=== PATIENT | female | born 1935 | race Caucasian/White ===

== ENCOUNTER 2019-02-24 22:55 | Inpatient (IN) | payer MEDICARE, OTHER ==
[~2019-02-24] VITALS: Ht 152.4 cm; Wt 49.8 kg
[~2019-02-24 22:55] MED LIST: ACETAMINOPHEN325 M1; AMLODIPINE BESY10 MG PO; ANTI-DIARRHEA2 MG; ASPIRIN EC81 MG PO; BABY ASPIRIN81 MG; BENZONATATE100 MG PO; CATAPRES0.1 MG PO; CICLOPIROX15 GM TOP; DICLOFENAC SOD150 ML OS; EXTRA STRENGTH500 MG PO; IBUPROFEN200 MG; IPRAT-ALBUT 0.5-3 ML; LAC HYDRIN; LEVAQUIN500 MG PO; LIDODERM700 MG; LISINOPRIL30 MG; MAGNESIUM250 M1 PO; MAGOX 400400 MG PO; MILK OF MA400 MG/5 M; OXYCODONE HCL5 MG PO; PAXIL40 MG PO; POTASSIUM CHLO20 ME1 PO; PREDNISONE20 MG PO; PROMETHAZINE HC25 M1; PROVENTIL HFA6.7 GM INH; RULOX SUSPENSI355 ML; SENNA-TIME S T1 EACH PO; TRAMADOL HCL50 MG PO; ZITHROMAX250 MG PO; ZOCOR10 MG PO
--- OUTSIDE RECORDS SUMMARY | 2019-02-24 22:58 | XMS ---
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 Sonam VISIT COUNT (12 MO.) 1 OSWALD Pleitez TOTAL 1 NOTE: Visits indicate total known visits. ED/UCC VISIT TRACKING (12 MO.) 02/24/2019 22:56 [facility]an [place] TYPE: Emergency COMPLAINT: - FALL INPATIENT VISIT TRACKING (12 MO.) No inpatient visits to display in this time frame [id number]
--- NOTE | 2019-02-25 03:15 | NUR ---
PT ARRIVED TO THE FLOOR AND TRANSFERED BY DRAW SHEET TO BED. PAIN 5/10 IN LEFT HIP, PRN PAIN MED PROVIDED. PT REPOSITIONED AND WARM PACK AND BLANKET APPLIED. IV FLUIDS INFUSING PER ORDER, IV CDI, WNL, FLUSHED WELL. ASSESSMENT COMPLETED, CMS INTACT, PT A&O X4. VS TAKEN. CPOX ON, SPO2 86%, RT NOTIFIED, PT PLACED ON 1L NC WITH SPO2 RISING TO 93%. NO OTHER NEEDS AT THIS TIME. CALL LIGHT IN REACH.
--- NOTE | 2019-02-25 05:08 | NUR ---
PT RESTING IN BED, EYES CLOSED. RR 18, EVEN, UNLABORED. SPO2 93% ON 1L NC. CALL LIGHT IN REACH.
--- NOTE | 2019-02-25 05:16 | NUR ---
PT HAS SLEPT MOST THE SHIFT. PAIN MANAGED WITH PRN PAIN MED, WARM PACK AND POSITIONING. PT TOLERATED IV FLUIDS AND NPO WELL. CMS INTACT IN LLE.
--- NOTE | 2019-02-25 05:49 | NUR ---
PT AWAKE IN ROOM. PAIN 5/10 IN LEFT HIP. PRN PAIN MED PROVIDED. TITRATED PT OFF NC O2, SPO2 DROPPED TO 86. PT PLACED BACK ON 1L NC. CMS INTACT IN LLE. NO OTHER NEEDS. CALL LIGHT IN REACH.
--- NOTE | 2019-02-25 06:22 | NUR ---
PATIENT ARRIVED LATE THIS EVENING. . PATIENT RESTED ALL NIGHT. PATIENT IS NPO. CALL LIGHT IN REACH
--- NOTE | 2019-02-25 06:37 | NUR ---
VS AND I & O COMPLETED. IV INFUSING PER ORDER. NO OTHER NEEDS. CALL LIGHT IN REACH.
--- NOTE | 2019-02-25 07:00 | NUR ---
BEDSIDE HANDOFF REPORT RECEIVED FROM CONTENT ASSISTANT RN. P TSLEDEBI, LEFT UNDISTURBED.
--- NOTE | 2019-02-25 07:53 | NUR ---
PATIENT RESTING IN BED, EYES CLOSED. PATIENT REQUESTING TO SLEEP LONGER. AM CARE SET UP AT BEDSIDE FOR PATIENT TO USE AT A LATER TIME. CALL LIGHT IN REACH. NO OTHER NEEDS AT THIS TIME.
--- NOTE | 2019-02-25 08:01 | NUR ---
PT RESTIGN IN BED. PT STATES PAIN IS OK AT THIS TIME. LUNG SOUNDS CLEAR, O2 SATS 95% ON 1L NC, DENIES SOB. BOWEL TONES ACTIVE, DENIES NAUSEA, PROVIDED MOUTH SWABS FOR COMFORT. CMS INTACT, LEFT LEG TENDER TO MOVE, ELEVATED ON PILLOW FOR COMFORT. IV FLUIDS INFUSING D5LR +20MEQ K AT 125 ML/HR. ABDI CATH DRAINING CLEAR YELLOW URINE. DISCUSSED PLAN OF CARE FOR THE DAY, AWAITING MD TO SEE PT. PT DENIES OTHER NEEDS AT THIS TIME.
--- NOTE | 2019-02-25 09:30 | NUR ---
PATIENT COMPLAINS OF PAIN AT AN 8 OUT OF 10 AND MOANS AND GROANS OFTEN. RN AT BEDSIDE AT THIS TIME.
--- NOTE | 2019-02-25 09:36 | EKG ---
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
--- NOTE | 2019-02-25 10:05 | NUR ---
PATIENT SITTING UP IN BED, SLIGHTLY TO TAKE MORNING MEDICATIONS WITH SEVERAL SIPS OF WATER. FAMILY IN ROOM WITH PATIENT.
--- NOTE | 2019-02-25 11:31 | NUR ---
ALEXUS GAVE PATIENT A SURGICAL WIPE DOWN THIS MORNING. CHANGED HER GOWN.
--- NOTE | 2019-02-25 11:53 | NUR ---
PT TO OR WITH OR NURSE.
--- NOTE | 2019-02-25 14:20 | NUR ---
PT RECEIVED FROM PACU. PT ON 3L NC, O2 SATS 95-97%, LUNG SOUNDS CLEAR. PT DROWSY BUT AROUSABLE TO VOICE, COMPLAINT OF PAIN BUT UNABLE TO RATE. LEFT HIP WITH GAUZE AND OPSITE DRESSING CDI, ICE PACK IN PLACE. ABDI CATH DRAINING YELLOW URINE. BOWEL TONES ACTIVE, PT DENIES NAUSEA, PROVIDED WATER AND A FEW BITES OF JELLO. TRANEXAMIC ACID AND LR AT 125 ML/HR INFUSING. DAUGHTER AT BEDSIDE.
--- NOTE | 2019-02-25 14:40 | NUR ---
02/25/19 1440 Evita Patel 1310- PT ARRIVES TO PACU LAYING ON HER RIGHT SIDE WITH HER LEGS DRAWN UP TOWARDS HER CHEST. THIS IS HOW THE PT HAD POSITIONED HERSELF PRIOR TO SURGERY DUE TO BACK PAIN AND COMFORT IN THIS POSITION. PT IS REACTIVE. RESP EVEN BUT LABORED. PT GIVEN A BREATHING TREATMENT PER ANESTHESIA REQUEST. PT EDUCATED SHE IS IN THE RECOVERY ROOM. PT IS SHAKING AND IS DIFFICULT TO OBTAIN VITAL SIGNS. PT GIVEN WARM BLANKETS AND THE ROBYN HUGGER WARMING UP. 1315- HELD PT'S HAND TO TRY TO KEEP RIGHT ARM STILL TO OBTAIN A BLOOD PRESSURE. BLOOD PRESSURE REMAINS ELEVATED. PATRICK RACHEL, FLORAL ARRANGER AT THE BEDSIDE AND IS GETTING MEDICATIONS TO LOWER PT'S BLOOD PRESSURE. 1317- MEDICATIONS GIVEN. SEE ANESTHESIA BLUE SHEET. 1322- PT PLACED ON 3L VIA NC. PT'S RESP ARE EVEN AND UNLABORED AFTER THE BREATHING TREATMENT.
[2019-02-25] MEDS ORDERED: MEN'S MULTIVIT1 EACH PO (14:54)
[2019-02-25] MEDS ORDERED: LISINOPRIL10 MG PO (14:56)
[2019-02-25] MEDS ORDERED: KLOR-CON 1010 MEQ PO (15:00)
--- NOTE | 2019-02-25 15:20 | NUR ---
VSS. PT CONTINUES TO BE A LITTLE DROWSY, AROUSABLE TO VOICE. PT RATING PAIN MILD AT THIS TIME. DRESSING TO LEFT HIP CDI, NO DRAINAGE, ICE PACK IN PLACE.
--- NOTE | 2019-02-25 17:15 | NUR ---
VSS. LEFT HIP INCISION WITH DRESSING CDI. PT WEANED TO 1L NC, CONTINUOUS PULSE OX IN PLACE. IV ANCEF GIVEN PER ORDER. PT CONTINUES TO RATE PAIN MILD AT THIS TIME. PT REFUSED NICOTINE PATCH. PT DENIES OTHER NEEDS AT THIS TIME.
--- NOTE | 2019-02-25 18:40 | NUR ---
PT WENT FOR LEFT HIP PINNING TODAY, DOING WELL POST-OP. PT WEANED TO 1L NC, LUNG SOUNDS CLEAR, CONTINUOUS PULSE OX IN PLACE. MINIMAL PAIN AFTER SURGERY, ICE PACKS IN PLACE. PT ADVANCED TO REGULAR DIET, TOLERATING WELL. ABDI CATH IN PLACE, QS. LR INFUSING AT 125 ML/HR, IV ANCEF.
--- NOTE | 2019-02-25 19:54 | NUR ---
SECRET SERVICE AGENT ROUNDING NOTE. PT RESTING IN BED WITH EYES CLOSED. PT DOES NOT WAKE WHEN AND TAXI INSTRUCTOR BUS TROLLEY ENTERS THE ROOM. CALL LIGHT IN REACH. WHITE BOARD UPDATED.
--- NOTE | 2019-02-25 20:35 | NUR ---
Awake, O2 1L NC, CPOX readings 94% , denies sob with exertion. dry, non productive cough present. Has dentures, declines to have them cleaned or soaked. IS at bedside, Coop with assessment. c/o 7/10 L hip pain, medicated with scheduled Tylenol 650mg po. L hip gauze dressing covered with Opsite in place, feet pumps in place, moves legs, good cms. Repositioned up in bed, turned, helpeful. f/c intact patent. draining clear yellow urine. laina care/f/c care done. has dentures, tolerating regular diet well, fresh water given, call light at bedside.
--- NOTE | 2019-02-26 01:09 | NUR ---
RESTING, NO DISTRESS O2 1L NC, CPOX IN PLACE, IVF INFUSING W/O PROBLEMS. SCDS IN PLACE, DRESSING L HIP INTACT
--- NOTE | 2019-02-26 03:26 | NUR ---
PT RESTING IN BED WITH EYES CLOSED. RESPIRATIONS EVEN AND UNLABORED. PT APPEARS TO BE SLEEPING. CALL LIGHT IN REACH.
--- NOTE | 2019-02-26 05:18 | NUR ---
CALCULATION REVIEWER IN ROOM TAKING VITALS. PT REPORTS PAIN 6/10 TO L HIP. PRN OXYCODONE ADMINISTERED. WARM BLANKET PROVIDED. ICE PACK REFILLED AND PLACED ON L HIP. PT DENIES FURTHER NEEDS AT THIS TIME. CALL LIGHT IN REACH.
--- NOTE | 2019-02-26 06:08 | NUR ---
PT REPORTS THAT OXYCODONE WAS INEFFECTIVE BRINGING PAIN DOWN. SHE STATES SHE DID NOT LIKE THE WAY IT MADE HER FEEL, DESCRIBES "WOOZY". PT DENIES NAUSEA, STATES I NEVER FELT SICK. PT PROVIDED WITH APPLE SAUCE, CRACKERS. WATER AT BEDSIDE. PT REPOSITIONED WITH PILLOWS. PT PLACED HER BREAKFAST ORDER. PT DENIES FURTHER NEEDS AT THIS TIME. CALL LIGHT WITHIN REACH.
--- NOTE | 2019-02-26 06:24 | NUR ---
PT REQUESTS TO ASK THIS WRTIER A QUESTION, ORAL HEALTH THERAPIST TO ROOM. PT ASKS WHAT HER ACTIVITY RESTRICTIONS ARE. EDUCATION PROVIDED. PT STATES THAT PAIN IS IMPROVED, UNABLE TO RATE AT THIS TIME. SA02 96% ON 1 LPM, O2 TURNED OFF SA02 92%. PT TOLERATING WELL. PT DENIES FURTHER NEEDS AT THIS TIME. CALL LIGHT WITHIN REACH.
--- NOTE | 2019-02-26 07:00 | NUR ---
PT RESTING SUPINE IN BED EYES CLOSED AND RESPIRATIONS EVEN AND UNLABORED. CALL LIGHT AND H2O IN REACH. REPORT RECEIVED FROM BRITTA LLANOS.
--- NOTE | 2019-02-26 08:07 | NUR ---
PT SITTING UP IN BED ALERT AND ORIENTED. PT ASSESSMENT COMPLETED. CALL LIGHT AND H2O IN REACH. AM MEDS ADMINISTERED EXCEPT FOR HOME ANTIFUNGAL CREAM THAT IS UNAVAILABLE HERE IN HOSPITAL PER PHARMACIST. PT ALSO REQUESTS IBUPROFEN PRN TO BE ORDERED SHE SAYS SHE NORMALLY TAKES THIS AT HOME FOR PAIN IT IT HELPS MORE THAN TYLENOL. WILL NOTIFY MD OF FUNGAL CREAM BEING UNAVAILABLE AND OF PT REQUEST FOR INUPROFEN TO BE ORDERED.
--- NOTE | 2019-02-26 08:18 | NUR ---
PATIENT SITTING UP IN BED EATING HER BREAKFAST.
--- NOTE | 2019-02-26 11:04 | NUR ---
CALL PLACED TO DR FIGUEREDO CELL PHONE. NOTIFIED OF PT'S REQUEST FOR PRN IBUPROFEN AND OF FACT THAT ANTIFUNGAL CREAM PT HAS ORDERED IS UNAVAILABLE HERE AT HOSPITAL. NEW ORDER RECEIVED FOR IBUPROFEN PO 600MG Q8HRS PRN PAIN. PER MD WILL HOLD ANTIFUNGAL CREAM WHILE PT HERE AT HOSPITAL. NO FURTHER ORDERS RECEIVED AT THIS TIME.
--- NOTE | 2019-02-26 11:54 | NUR ---
PT RESTING SUPINE IN BED ALERT AND ORIENTED WATCHING TV. 10CC'S OF STERILE WATER REMOVED FROM BALLOON AND ABDI REMOVED WITHOUT DIFFICULTY. PT TOLERATED WELL AND AGREES TO USE CALL LIGHT WHEN SHE DEVELOPES URGE TO VOID AND NEEDED FOR SAFETY. CALL LIGHT AND H2O IN REACH. NO FURTHER NEEDS OR CONCERNS VOICED.
--- NOTE | 2019-02-26 12:35 | NUR ---
PT SITTING UP IN HIGH FOLWERS POSITION IN BED EATING LUNCH AND DENIES NEEDS OR CONCERNS. CALL LIGHT AND H2O IN REACH. NO NEEDS OR CONCERNS VOICED. PT AGREES TO USE CALL LIGHT AFTER SHE IS FINISHED EATING LUNCH SO SHE CAN AMBULATE IN HALLS WITH ASSIST.
--- NOTE | 2019-02-26 15:35 | NUR ---
PT RESTING IN SEMIFOWELRS POSITION IN BED ALERT AND ORIENTED. CALL LIGHT AND H2O IN REACH. PT ASSESSMENT COMPLETED. NO NEEDS OR CONCERNS VOICED.
--- NOTE | 2019-02-26 20:45 | NUR ---
PT ASSESSMENT COMPLETE PT RATES PAIN 6/10 TO BACK AND L HIP. SCHEDULED TYLENOL ADMINISTERED. PT DENIES NAUSEA OR SOB. LUNG SOUNDS DIM IN BILATERAL BASES. CMS INTACT TO ALL EXTREMTIES. DRESSING TO L HIP, GAUZE AND OPSITE C/D/I. PT UP TO BSC WITH 1 PA, TOLERATED WELL. IV FLUSHED, FOUND TO BE INFILTRATED. ATTEMPTED TO RESTART IV UNSUCCESSFULLY. PT WONDERS IF MD CAN BE CONTACTED TO LEAVE IV OUT. MD NOTIFIED, VERBAL ORDER RECEIVED OK TO LEAVE IV OUT AND CHANGE PRNS TO PO. PT DENIES FURTHER NEEDS. CALL LIGHT WITHIN REACH.
--- NOTE | 2019-02-26 21:50 | NUR ---
ASSISTED PATIENT BACK TO BED FROM BEDSIDE COMMODE. SCDS BACK ON. BED ALARM ON. CALL LIGHT IN REACH.
--- NOTE | 2019-02-27 00:20 | NUR ---
PT RESTING IN BED WITH EYES CLOSED. DOES NOT WAKE WHILE BATH MIXER IN DOORWAY. CALL LIGHT IN REACH.
--- NOTE | 2019-02-27 01:17 | NUR ---
1 PA TO BEDSIDE COMMODE USING WALKER. PATIENT VOIDED 500ML AND LARGE FORMED BOWEL MOVEMENT. PATIENT IS BACK IN BED. SCD BACK ON. CALL LIGHT IN HER HAND. NO OTHER NEEDS AT THIS TIME.
--- NOTE | 2019-02-27 02:15 | NUR ---
PT ASSESSMENT COMPLETE. PT RATES PAIN 6/10 TO L HIP. SCHEDULED TYLENOL ADMINISTERED. PT UP TO COMMODE AND BACK TO BED WITH FWW AND 1 PA. TOLERATED WELL. WARM BLANKETS PROVIDED. PT DENIES FURTHER NEEDS AT THIS TIME. CALL LIGHT IN REACH.
--- NOTE | 2019-02-27 02:47 | NUR ---
PT RESTING IN BED WITH EYES CLOSED. RESPIRATIONS EVEN AND UNLABORED. PT DOES NOT WAKE WHILE INSTRUMENT ENGINEER IN DOORWAY, APPEARS TO BE SLEEPING. CALL LIGHT IN REACH.
--- NOTE | 2019-02-27 05:11 | NUR ---
PT SLEPT OFF AND ON THIS SHIFT. SCHEDULED TYLENOL CONTROLLED PAIN WELL. NO NAUSEA OR SOB. GAUZE AND OPSITE TO L HIP, C/D/I. CPOX, TOLERATING RA. WBAT, 1 PA WITH FWW. GOOD UO. BM THIS SHIFT. NO IV ACCESS. FROM [facility].
--- NOTE | 2019-02-27 08:13 | NUR ---
BEDSIDE REPORT RECEIVED PT RESTING IN BED REFUSES UP TO THE CHAIR.
--- NOTE | 2019-02-27 11:14 | HP ---
[facility] [address] [place], [place] [address] Signed ADMISSION DATE: 02/25/2019 HISTORY OF PRESENT ILLNESS: The patient is an 83-year-old white female, who previously had an intertrochanteric fracture on the right hip. She lives in a long-term care facility ([facility]) and was ambulating by herself with her walker yesterday when she had a ground-level fall. She had immediate pain in her left hip area and was unable to ambulate. She was brought to the emergency room where evaluation and x-rays suggested that she had a valgus impacted subcapital fracture of the left hip. She was admitted to the Orthopedic Service. At the present time, really her only complaint is a left hip pain. She says she has some discomfort in her neck, but nothing that she has not had previously. She specifically denies a loss of consciousness, blunt force head trauma, said she did not feel dizzy before she fell. She simply lost her footing. PAST MEDICAL HISTORY: She has a long history of hypertension. Apparently gets fairly good control with lisinopril and amlodipine. She also has a history of osteoarthritis, hyperlipidemia, hypokalemia, hypocalcemia, osteoporosis, and depression. CURRENT MEDICATIONS: Sennoside/docusate sodium, Levaquin, magnesium oxide, potassium chloride, amlodipine 10 mg, Paxil 40 mg daily, clonidine 0.1 mg twice a day, simvastatin 10 mg at bedtime. She uses ciclopirox cream between her toes. She takes tramadol and Tylenol for chronic pain issues and takes a baby aspirin. ALLERGIES: She has no known drug allergies. PHYSICAL EXAMINATION: GENERAL: She is a pleasant but diminutive 83-year-old white female. Although, she is supine in bed, she indicates she weighs about 130 pounds. She is 5 feet tall. HEENT: On examination, there is no evidence of craniofacial trauma. NECK: Moderately stiff, but in a diffuse multi-planer way consistent with degenerative disk disease, not with any acute injury. CHEST: Clear. CARDIAC: Reveals a regular rhythm. ABDOMEN: Benign. EXTREMITIES: The right leg is not shortened or externally rotated, but there is a contusion over the greater trochanter laterally. Having already seen the x-rays, we did Electronically Signed By: SAMIR MCLAUGHLIN MD 02/27/19 1114 PATIENT NAME: DEJAH GERARD HISTORY AND PHYSICAL DATE OF : 37 REPORT #: [id number] PHYSICIAN: SAMIR MCLAUGHLIN MD PCP: SIMONA RHODES MD REPORT IS CONFIDENTIAL AND NOT TO BE RELEASED WITHOUT AUTHORIZATION [facility] [address], [place] [address] Signed not really make any attempt to move her left leg because of a left hip fracture. The left knee is not swollen or tender. NEUROVASCULAR: Distally appears unremarkable. She is able to plantar flex and dorsiflex her toes and feet. Pulses are diminished but bilaterally symmetrically so. DIAGNOSTIC DATA: Her x-rays and x-ray reports were reviewed. All other laboratory studies seem pretty unremarkable except for a mild hypokalemia of 3.4. Her hemoglobin is 12. Her EKG actually shows improvement from when it was previously taken in 2017. There does not appear to be any acute issues on her chest x-ray. ASSESSMENT AND PLAN: I discussed with the patient and her daughter who has her power of insurance defense attorney and our general recommendation is percutaneous cannulated screw fixation. We reviewed the numerous potential risks and complications associated with hip fractures in the elderly along with the general statistics concerning survivability and a long-term functionality. After outlining all potential risks and complications, the patient and her daughter were comfortable proceeding with internal fixation of the hip fracture as described above. Samir Mclaughlin MD WFB/MODL /[id number] Copies: ~ Electronically Signed By: SAMIR MCLAUGHLIN MD 02/27/19 1114 PATIENT NAME: DEJAH GERARD HISTORY AND PHYSICAL DATE OF : 37 REPORT #: [id number] PHYSICIAN: SAMIR MCLAUGHLIN MD PCP: SIMONA RHODES MD REPORT IS CONFIDENTIAL AND NOT TO BE RELEASED WITHOUT AUTHORIZATION
--- NOTE | 2019-02-27 11:14 | OR ---
[facility] [address] [place], [place] [address] Signed DATE OF OPERATION: 02/25/2019 SURGEON: Jarrod Huggins MD PREOPERATIVE DIAGNOSIS: Impacted subcapital fracture, left hip. POSTOPERATIVE DIAGNOSIS: Impacted subcapital fracture, left hip. PROCEDURE PERFORMED: Percutaneous cannulated screw fixation subcapital fracture, left hip. ANESTHESIA: General. SPECIMENS AND COMPLICATIONS: There were no specimens or complications. BLOOD LOSS: Trivial. WHAT WAS DONE: The patient was taken to the operating room. After anesthesia was induced and airway secured, the patient was positioned, prepped and draped in the routine sterile fashion on the fracture table. Fracture was reduced with gentle longitudinal traction and relatively neutral rotation. After checking the position fluoroscopically, the lateral aspect of the leg was prepped and draped in the routine sterile fashion. After an appropriate preoperative time-out, a small incision was made over the base of the greater trochanter. Under biplanar fluoroscopic control, three terminally threaded 8-inch guide pins were introduced through the lateral cortex up the neck and into the head. These were then overdrilled with three 7.3 mm cannulated titanium screws to with a washer. This appeared to give us excellent fixation. The guide pins were withdrawn. The final position was checked fluoroscopically and pictures were printed. The wound was irrigated, closed in standard fashion, sterile dressing applied. The patient was awakened, taken to recovery room where she arrived in stable condition. Counts were correct and antibiotic protocols were followed. Electronically Signed By: JARROD HUGGINS MD 02/27/19 1114 PATIENT NAME: DEJAH GERARD OPERATIVE REPORT DATE OF : 37 REPORT #: [id number] PHYSICIAN: JARROD HUGGINS MD PCP: SIMONA RHODES MD REPORT IS CONFIDENTIAL AND NOT TO BE RELEASED WITHOUT AUTHORIZATION [address] [place] [address] Signed Jarrod Huggins MD WFCha/MODL /[id number] Copies: ~ Electronically Signed By: JARROD HUGGINS MD 02/27/19 1114 PATIENT NAME: DEJAH GERARD OPERATIVE REPORT DATE OF : 37 REPORT #: [id number] PHYSICIAN: JARROD HUGGINS MD PCP: SIMONA RHODES MD REPORT IS CONFIDENTIAL AND NOT TO BE RELEASED WITHOUT AUTHORIZATION
--- NOTE | 2019-02-27 11:18 | NUR ---
PT DAUGHTER IN TO VISIT THIS SHIFT. PT UP TO CHAIR TO SIT FOR A TIME SHE IS ABLE TO MOVE HERSELF FROM THE BED SBA ONLY PT USES 4WW TO CHAIR. CALL LIGHT AND NEEDED ITEMS IN REACH NO C/O PAIN
--- NOTE | 2019-02-27 14:00 | NUR ---
PT RETURNS TO BED AFTER NOON MEAL TO NAP FOR A TIME, STATES SHE IS "SO TIRED" ANTICIPATES P/T AFTER 1500
--- NOTE | 2019-02-27 14:21 | NUR ---
PT IN BED, PLEASANT, AND STATED THAT SHE WOULD LIKE TO VISIT BUT FEELS A NEED TO REST. WILL CHECK BACK
--- NOTE | 2019-02-27 15:36 | NUR ---
SPOKE WITH ROBERTO FROM [facility] WHERE PATIENT LIVES. SHE STATES [place] IS FAIRLY INDEPENDENT. SHE USES A 4WW AND A W/C WHICH SHE PROPELS SELF IN. SHE IS ABLE TO TOILET SELF. SHE STATES THAT PATIENT IS A DAILY DRINKER OF USUALLY BEER AND SHE FELL OUTSIDE IN A SMOKING AREA. SHE STATES SHE IS COMING UP TO SPEAK WITH THE PATIENT ABOUT THIS AND TO DISCUSS RULES AGAIN. SHE INTENDS FOR PATIENT TO RETURN TO FACILITY IF SHE IS BACK TO HER BASELINE. WE DISCUSSED THAT PATIENT WILL NEED SOME DETENTION/THERAPY FIRST. WILL CONTINUE TO FOLLOW.
--- NOTE | 2019-02-27 15:43 | NUR ---
PATIENT UP TO BATHROOM AND BACK TO BED, 1PA FWW. PATIENT NOW WORKING WITH PT.
--- NOTE | 2019-02-27 16:21 | NUR ---
PATIENT UP TO BATHROOM AND BACK TO BED, 1PA FWW. PATIENT COMBED HAIR AND WASHED HANDS AT SINK. PATIENT REFUSED SHOWER. CALL LIGHT IN REACH. NO FURTHER NEEDS AT THIS TIME.
--- NOTE | 2019-02-27 16:32 | NUR ---
PT UP AMBULATES RODRIGUEZ WITH P/T WELL TOLERATED
--- NOTE | 2019-02-27 18:13 | NUR ---
PT UP IN BED FOR EVENING MEAL VISITOR PRESENT 1 HR PLUS. PT IS ACTIVELY VISITING, UPBEAT, AND ENTHUSIASTIC. AGREES IBUPROFEN WAS EFFECTIVE FOR DISCOMFORT AFTER P/T
--- NOTE | 2019-02-27 20:19 | NUR ---
PT ASSESSMENT COMPLETE. PT RATES PAIN 5/10 TO BACK AND L HIP. SCHEDULED TYLENOL ADMINSTERED. PT DENIES SOB OR NAUSEA. PT STATES SHE HAS BEEN PASSING MULTIPLE FLATUS TODAY. DENIES ABD TENDERNESS. DRESSING TO L HIP C/D/I. CMS INTACT TO ALL EXTREMITIES. PT UP TO COMMODE WITH MARIELLA. DENIES FURTHER NEEDS FROM THIS STRUCTURAL ANALYSIS ENGINEER. WATER PURIFICATION CHEMIST REMAINS IN ROOM.
--- NOTE | 2019-02-27 23:26 | NUR ---
PT RESTING IN BED WITH EYES CLOSED. DOES NOT WAKE WHILE COSMETOLOGY TEACHER IN DOORWAY. CALL LIGHT IN REACH.
--- NOTE | 2019-02-28 02:08 | NUR ---
scheduled tylenol administered. pt states that pain is well controlled at this time. pt up to bsc and back to bed with 1 pa. pt tolerated well. new gown provided. ice water provided. pt denies further needs at this time. call light in reach.
--- NOTE | 2019-02-28 05:14 | NUR ---
PT RESTING IN BED WITH EYES CLOSED. RESPIRATIONS EVEN AND UNLABORED. PT APPEARS TO BE SLEEPING. CALL LIGHT IN REACH.
--- NOTE | 2019-02-28 07:15 | NUR ---
BEDSIDE HANDOFF REPORT RECEIVED FROM SENIOR RISK ANALYST RN. PT SLEEPING, LEFT UNDISTURBED.
--- NOTE | 2019-02-28 08:45 | NUR ---
PT SBA FROM BSC TO BED, VOIDED AND HAD SOFT BM. PT RATING PAIN 5/10 TO LEFT HIP, GIVEN SCHEDULED TYLENOL. PT ON ROOM AIR, LUNG SOUNDS CLEAR, DENIES SOB. BOWEL TONES ACTIVE, TOLERATING REGULAR DIET, GOOD APPETITE. CMS INTACT, WITHOUT EDEMA, SCDS IN PLACE. PT WITHOUT IV ACCESS. LEFT HIP WITH OPSITE AND GAUZE, CDI. PT DENIES OTHER NEEDS AT THIS TIME.
--- NOTE | 2019-02-28 09:30 | NUR ---
PATIENT SITTING UP IN BED WATCHING TV. HAIR COMBED. WARM WASHCLOTH GIVEN. MARIMAR CHRISTINEEK IN TO TALK TO PATIENT. PATIENT SAID MAYBE SHOWER AFTER LUNCH. CALL LIGHT IN REACH. NO FURTHER NEEDS AT THIS TIME.
--- NOTE | 2019-02-28 13:50 | NUR ---
PATIENT UP TO BATHROOM AND BACK TO BED, 1PA FWW. PREVENTATIVE MAINTENANCE TECHNICIAN IN ROOM TALKING WITH PATIENT. CALL LIGHT IN REACH. NO FURTHER NEEDS AT THIS TIME.
--- NOTE | 2019-02-28 14:15 | NUR ---
PT RESTINGIN BED. NO ACUTE CHANGES. PT STATES PAIN IS MUCH BETTER AFTER TYLENOL AND MOTRIN. PT DENIES OTHER NEEDS AT THIS TIME.
--- NOTE | 2019-02-28 15:32 | NUR ---
In to speak with pt. There was a discussion concerning TC for this pt. Anthony Alcocer came to see pt and she can return there. Pt would like to return with HH at [facility] and have HH. Chart will be sent to [facility] as daughter and pt chose [facility]. Called Dr. Huggins and he will discharge pt. tomorrow.
--- NOTE | 2019-02-28 17:03 | NUR ---
PT RESTING IN BED. PT PAIN WELL CONTROLLED AT THIS TIME. PT AWAITING DINNER AND WOULD LIKE TO SHOWER AFTER DINNER. PT DENIES OTHER NEEDS AT THIS TIME.
--- NOTE | 2019-02-28 19:04 | NUR ---
PATIENT UP TO BATHROOM, 1PA FWW. SHOWER DONE, PATIENT ASSISTED IN SHOWER. NEW ATTENDS, GOWN, AND SOCKS PROVIDED. HAIR COMBED AND ORAL CARE DONE AT SINK. PATIENT BACK TO BED, 1PA FWW. FAMILY IN ROOM AND HELPING PATIENT BLOW DRY HAIR. CALL LIGHT IN REACH. NO FURTHER NEEDS AT THIS TIME.
--- NOTE | 2019-02-28 20:36 | NUR ---
ASSISTED PATIENT FROM TOILET TO BACK TO BED. V/S AND I&O TAKEN AND CHARTED. CALL LIGHT IN REACH. PATIENT ASKED FOR HER PEPSI IN FRIDGE, IT IS IN HER ROOM NOW.
--- NOTE | 2019-02-28 22:12 | NUR ---
PATIENT HAVING NO PAIN, 1PSBA WITH FWW TO THE BATHROOM AND BACK TO BED. CALLL LIGHT IN REACH. PATIENT WATCHING TV.
--- NOTE | 2019-02-28 23:52 | NUR ---
PATIENT RESTING QUIETLY WATCHING TV. NO NEEDS AT THIS TIME. CALL LIGHT IN REACH.
--- NOTE | 2019-03-01 01:03 | NUR ---
PATIENT RESTING QUIETLY ON HER LEFT SIDE AND RESPIRATIONS ARE REGULAR AND EVEN, EYES CLOSED AND CALL LIGHT IN REACH.
--- NOTE | 2019-03-01 01:24 | NUR ---
PATIENT UP TO THE BATHROOM WITH 1PSBA AND FWW AND SCHEDULED MEDS GIVEN. BACK TO BED. CALL LIGHT IN REACH.
--- NOTE | 2019-03-01 05:26 | NUR ---
PATIENT REST WELL MOST OF THE NIGHT AND HAS DENIED ANY PAIN.LEFT HIP DRESSING CDI. PATIENT HAS HAD TO GET UP A FEW TIMES TO URINATE AND DONE WELL WITH 1PSBA AND FWW. SCD'S IN PLACE. CALL LIGHT AND WATER WITHIN REACH.
--- NOTE | 2019-03-01 07:00 | NUR ---
BEDSIDE HANDOFF REPORT RECEIVED FROM WOOD POLISHER RN. PT SLEEPING IN BED, LEFT UNDISTURBED.
--- NOTE | 2019-03-01 08:00 | NUR ---
Dr Huggins in and orders written for dc, front wheeled walker, and F2F completed.
--- NOTE | 2019-03-01 08:20 | NUR ---
PT ON ROOM AIR, LUNG SOUNDS CLEAR. PT WITH MINIMAL PAIN 3/10, GIVEN SCHEDULED TYLENOL. PT WITH GOOD APPETITE, EATINGIN REGULAR BREAKFAST, BOWEL TONES ACTIVE. CMS INTACT, WITHOUT EDEMA, SCDS IN PLACE. WITHOUT IV ACCESS. PT ASSISTED TO BATHROOM, SBA WITH FWW. PER DR. MCLAUGHLIN DRESSING TO LEFT HIP REMOVED, ZOE IN PLACE, WITHOUT REDNESS OR DRAINAGE. DISCUSSED PLAN OF CARE, PT TO BE DISCHARGED BACK TO [facility] TODAY.
--- NOTE | 2019-03-01 09:32 | NUR ---
PATIENT RESTING IN BED. VITAL SIGNS AND I&O DONE. CALL LIGHT WITHIN REACH. NO OTHER NEEDS AT THIS TIME
--- NOTE | 2019-03-01 10:05 | NUR ---
Spoke with pt and she would FWW from [facility]. Notes, face sheet, prescriptions, PT eval faxed to [facility].
--- NOTE | 2019-03-01 10:06 | NUR ---
Face sheet, H&P, F2F,Orders,progress note, PT eval and notes scanned to [facility].
--- NOTE | 2019-03-01 13:03 | NUR ---
PT RESTING IN BED, ALERT AND ORIENTED. SHE MENTIONED THAT HER INFORMATION SECURITY RISK ANALYST CAME BY TUES AND SEEMED TO PLEASE PT. PT MENTIONED THAT SHE IS GOING HOME TODAY, WITH A LITTLE BIT OF ANXIOUSNESS. FOUND SATISFACTION THAT SOMEONE IS ALWAYS THERE TO HELP. PT EXPRESSED GREAT APPRECIATION IN THE CARE SHE HAS RECEIVED AT [facility] FROM ALL THE STAFF. PT REQUESTED PRAYER, WILL FOLLOW NEEDED
--- NOTE | 2019-03-02 07:13 | DS ---
[facility] [address], [place] [address] Signed ADMISSION DATE: 02/25/2019 DISCHARGE DATE: 03/01/2019 FINAL DIAGNOSIS AT THE TIME OF DISCHARGE: Subcapital fracture, left proximal femur (hip). PROCEDURE: Left hip percutaneous cannulated screw fixation. SURGEON: Jarrod Huggins MD HOSPITAL COURSE: The patient is an 83-year-old white female, who lives in a long-term care facility. She fell on the day of admission and was unable to get up and ambulate. She was brought to the emergency room, where imaging suggested a subcapital fracture of the left hip. The patient was admitted to the Orthopedic Service. After routine preoperative screening all of which was felt to be unremarkable, the patient was taken to the operating room, where she underwent percutaneous cannulated screw fixation of the left hip. Postoperatively, she did amazingly well. She was progressing well with physical therapy, weightbearing as tolerated on the left. Her hematological parameters remained stable and her imaging showed excellent alignment and position. Her wound has remained clean and dry. At the present time, she is doing well with the walker. There was initially a plan to transition her to a swing bed, which is actually with her walker to qualify for swing bed, so she is being returned to [facility], where she lives. We have arranged for home health to perform in-home physical therapy 3 times a week for the next 4 weeks and like to see her back in 4 to 6 weeks. We did order her a front wheeled walker as she was having difficulty with a standard walker getting away from her. We will also not keep her on a prolonged anticoagulation because she is clearly at significant fall risk. We will ask her to follow up in 4-6 weeks with re-evaluation of her incision and new x-rays. Jarrod Huggins MD Electronically Signed By: JARROD HUGGINS MD 03/02/19712 PATIENT NAME: DEJAH GERARD DISCHARGE SUMMARY DATE OF : 37 REPORT #: [id number] PHYSICIAN: JARROD HUGGINS MD PCP: SIMONA RHODES MD REPORT IS CONFIDENTIAL AND NOT TO BE RELEASED WITHOUT AUTHORIZATION [address] [place] [address] Signed [facility] /[id number] Copies: ~ Electronically Signed By: JARROD HUGGINS MD 03/02/19712 PATIENT NAME: DEJAH GERARD DISCHARGE SUMMARY DATE OF : 37 REPORT #: [id number] PHYSICIAN: JARROD HUGGINS MD PCP: SIMONA RHODES MD REPORT IS CONFIDENTIAL AND NOT TO BE RELEASED WITHOUT AUTHORIZATION
== END 2019-03-01 11:18 | disposition home health service (06) | DRG 482 ==
LOC: ED 22:55 → MS 02-25 02:13
PROVIDERS: ADMIT Orthopaedic Surgery
PROC: 3E0T3BZ Introduction of Anesthetic Agent into Peripheral Nerves and Plexi, Percutaneous Approach (ICD-10-PCS; 2019-02-25)
PROC: 3E0T33Z Introduction of Anti-inflammatory into Peripheral Nerves and Plexi, Percutaneous Approach (ICD-10-PCS; 2019-02-25)
PROC: 0QS734Z Reposition Left Upper Femur with Internal Fixation Device, Percutaneous Approach (ICD-10-PCS; principal; 2019-02-25 12:00)
DX: S72.012A Unspecified intracapsular fracture of left femur, initial encounter for closed fracture (principal); G89.18 Other acute postprocedural pain; I10 Essential (primary) hypertension; M19.90 Unspecified osteoarthritis, unspecified site; E78.5 Hyperlipidemia, unspecified; E87.6 Hypokalemia; G89.29 Other chronic pain; E83.51 Hypocalcemia; F32.9 Major depressive disorder, single episode, unspecified; F17.210 Nicotine dependence, cigarettes, uncomplicated; W18.30XA Fall on same level, unspecified, initial encounter; Y92.099 Unspecified place in other non-institutional residence as the place of occurrence of the external cause; Z88.1 Allergy status to other antibiotic agents; Z79.82 Long term (current) use of aspirin; Z88.2 Allergy status to sulfonamides; Z79.891 Long term (current) use of opiate analgesic; Z79.899 Other long term (current) drug therapy
CPT/HCPCS: 01210; 36415; 51702; 64447; 71045; 72170; 73501; 73502; 73560; 80048; 80053; 81001; 85025; 85610; 85730; 93005; 93010; 94760; 94762; 97110; 97116; 97162; 97530; 99284-25; 99406; A9270; C1713; J0131; J0360; J0690; J1100; J1170; J2270; J2405; J2704; J2795; J3480; J7121

== ENCOUNTER 2020-07-10 17:03 | Emergency (ER) | payer MEDICARE, OTHER ==
[~2020-07-10] VITALS: Ht 152.4 cm; Wt 52.2 kg
[~2020-07-10 17:03] MED LIST changes: +CERTAVITE SR-A1 EACH PO; -EXTRA STRENGTH500 MG PO; +KLOR-CON 1010 MEQ PO; +PAXIL20 MG PO; -PAXIL40 MG PO; +TYLENOL EXTRA500 MG PO; +ZESTRIL20 MG PO
[2020-07-10] MEDS ORDERED: AMMONIUM LACTA385 GM TP (17:19)
[2020-07-10] MEDS ORDERED: IBUPROFEN200 MG PO (17:21)
[2020-07-10] MEDS ORDERED: SYSTANE BALANCE10 ML OPTH (17:22)
[2020-07-12] MEDS ORDERED: ONDANSETRON ODT8 MG PO (16:28)
[2020-07-13] MEDS ORDERED: MAG-OXIDE400 MG PO (10:52)
[2020-07-13] MEDS ORDERED: CEROVITE SENIO1 EACH PO (14:09)
[2020-07-14] MEDS ORDERED: PANTOPRAZOLE SO40 MG PO (09:24)
[2020-07-14] MEDS ORDERED: LIDOCAINE1 EACH TD (09:26)
== END 2020-07-10 21:15 | disposition home or self-care (01) ==
LOC: ED 17:03
DX: R11.2 Nausea with vomiting, unspecified (principal); D72.829 Elevated white blood cell count, unspecified; I10 Essential (primary) hypertension; E78.5 Hyperlipidemia, unspecified; M19.90 Unspecified osteoarthritis, unspecified site; F17.200 Nicotine dependence, unspecified, uncomplicated; Z88.2 Allergy status to sulfonamides; Z88.1 Allergy status to other antibiotic agents; Z79.899 Other long term (current) drug therapy; Z79.82 Long term (current) use of aspirin
CPT/HCPCS: 80053; 81001; 83735; 85025; 99284

== ENCOUNTER 2022-07-29 21:09 | Inpatient (IN) | payer MEDICARE, OTHER ==
[~2022-07-29] VITALS: Ht 152.4 cm; Wt 40.9 kg
[~2022-07-29 21:09] MED LIST changes: +AMMONIUM LACTA385 GM TP; +CEROVITE SENIO1 EACH PO; +IBUPROFEN200 MG PO; +LIDOCAINE1 EACH TD; +MAG-OXIDE400 MG PO; +ONDANSETRON ODT8 MG PO; +PANTOPRAZOLE SO40 MG PO; +SYSTANE BALANCE10 ML OPTH
--- OUTSIDE RECORDS SUMMARY | 2022-07-29 21:12 | XMS ---
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 E.D. VISIT COUNT (12 MO.) 2 [facility] Pleitez TOTAL 2 NOTE: Visits indicate total known visits. ED/UCC VISIT TRACKING (12 MO.) 07/29/2022 21:10 [facility] [place] TYPE: Emergency COMPLAINT: - URINE PROBLEM 07/21/2022 22:22 [facility] [place] TYPE: Emergency COMPLAINT: - RT KNEE/RT HIP PAIN DIAGNOSES: - Allergy status to other drugs, medicaments and biological substances - Allergy status to sulfonamides - Displaced bicondylar fracture of right tibia, initial encounter for closed fracture - Essential (primary) hypertension - Fall on same level from slipping, tripping and stumbling with subsequent striking against other object, initial encounter - Hyperlipidemia, unspecified - Nicotine dependence, unspecified, uncomplicated - Other group home (current) drug therapy - Pain in right knee INPATIENT VISIT TRACKING (12 MO.) No inpatient visits to display in this time frame [email or web address]
[2022-07-29] MEDS ORDERED: CEPHALEXIN500 MG PO (21:26)
[2022-07-29] MEDS ORDERED: HYDROCODON-ACE1 EA10 PO (21:43)
[2022-07-29] MEDS ORDERED: ALENDRONATE SOD70 MG PO (21:43)
[2022-07-30 01:56] VITALS: BP 115/66
--- NOTE | 2022-07-30 02:30 | NUR ---
pt ARRIVES TO [place] VIA STRETCHER. REPORT RECEIVED FROM HOMEBIRTH MIDWIFEBRITTA KAPLAN. VSS. 2L OXYGEN BY NC IN PLACE. TWO RN SKIN ASSESSMENT COMPLETE. REDNESS NOTED ON BUTTOCKS, COCCYX, BLANCHABLE. pt POSITIONED FLOATING WITH PILLOWS UNDER EACH HIP. ASSESSMENT COMPLETE. pt RATES PAIN 6/10 IN RIGHT KNEE. PRN PAIN MEDICATION ADMINISTERED. RIGHT KNEE IN IMMOBILIZER. ABDI DRAINING CLOUDY URINE. pt STATES IT HAS BEEN SEVERAL DAYS SINCE LAST BM, NIO BOWEL MEDICATION ORDERED. BRITTA ESCALERA REMAINS IN ROOM FOR ADMISSION.
--- NOTE | 2022-07-30 05:20 | NUR ---
pt RESTING IN BED WITH EYES CLOSED, HOB ELEVATED. BREATHING UNLABORED.
[2022-07-30 06:01] VITALS: BP 106/67
--- NOTE | 2022-07-30 06:27 | NUR ---
IN ROOM FOR VS. pt RATES PAIN 5/10 IN RIGHT KNEE. PRN PAIN MEDICATION ADMINISTERED BY BRITTA TINAJERO. RIGHT HEEL TENDER, RED. HEEL PROTECTORS APPLIED.
[2022-07-30] MEDS ORDERED: PEG3350510 GM PO ×2 (07:58→11:29)
[2022-07-30] MEDS ORDERED: MILK OF MA400 MG/5 M PO (08:03)
--- NOTE | 2022-07-30 08:30 | NUR ---
REPORT RECEIVED FROM NIGHT RN AND PT. CARE RESUMED. PT. IS ALERT AND ORIENTED TO ALL. C/O PAIN IN R. HEEL. HEEL PROTECTORS IN PLACE. BLANCHABLE REDNESS TO BOTH HEELS AND PEDAL PULSES FOUND WITH DOPPLER. LEGS REPOSITIONED. ASSESSMENT COMPLETED. PT. LEFT WITH CALL LIGHT IN REACH.
--- NOTE | 2022-07-30 09:00 | NUR ---
SYSTEMIC BP WAS 90 AND MD UPDATED. NO NEW ORDERS AT THIS TIME.
[2022-07-30 09:02] VITALS: BP 100/68
--- NOTE | 2022-07-30 09:02 | NUR ---
pt resting in bed. vitals and is and os complete. pt assisted up to chair 2 pa stand pivot. pt leg elevated. pt linen changed and egg crate placed on bed. son now in room, no needs. call light within reach
--- NOTE | 2022-07-30 09:28 | NUR ---
PER CONVERSATION WITH DR. OLVERA PATIENT WILL LIKELY NEED PLACEMENT TO SNF SHE IS NON WEIGHT BEARING. CHART FAXED TO MARCELO AT T.
--- NOTE | 2022-07-30 10:20 | NUR ---
In and spoke with Ruthie and her grandson. Pt would to go to [facility] as she has a Tib plateau FX on her R knee. Pt will be nonwt bearing x 6 weeks. Pt is awake and alert. Grandson is in the room. Pt uses a walker and has wc at [facility]. She is on 02 currently. Pt denies needs, but does not feel she can return to [facility] as she cannot get around. I called and spoke with AMRCELO. He has the chart and will discuss with the RN. I also called Blanquita Crespo at [facility] and pt does have LTC benefits which will cover her stay in a SNF.
[2022-07-30] MEDS ORDERED: ZOCOR10 MG PO (11:26)
[2022-07-30] MEDS ORDERED: CEFPODOXIME PR200 MG PO (11:26)
[2022-07-30] MEDS ORDERED: CLONIDINE HCL0.1 MG PO (11:27)
[2022-07-30] MEDS ORDERED: TYLENOL EXTRA500 MG PO (11:27)
[2022-07-30] MEDS ORDERED: HYDROCODON-ACE1 EA10 PO (11:27)
[2022-07-30] MEDS ORDERED: AMLODIPINE BESYL5 MG PO (11:27)
[2022-07-30] MEDS ORDERED: PAXIL20 MG PO (11:28)
[2022-07-30] MEDS ORDERED: SYSTANE BALANCE10 ML OPTH (11:28)
[2022-07-30] MEDS ORDERED: PANTOPRAZOLE SO40 MG PO (11:29)
[2022-07-30] MEDS ORDERED: MELATONIN3 MG PO (11:30)
[2022-07-30] MEDS ORDERED: ALENDRONATE SOD70 MG PO (11:30)
[2022-07-30] MEDS ORDERED: BENADRYL ITCH28.3 G1 TOP (11:37)
[2022-07-30] MEDS ORDERED: AMMONIUM LACTA385 GM TOP (11:39)
[2022-07-30] MEDS ORDERED: TUMS ULTRA400 MG PO (11:40)
[2022-07-30] MEDS ORDERED: CICLOPIROX15 GM TOP (11:42)
[2022-07-30] MEDS ORDERED: NEOSPORIN OIN28.3 GM TOP (11:47)
[2022-07-30] MEDS ORDERED: ONDANSETRON HCL4 MG PO (11:49)
[2022-07-30] MEDS ORDERED: PROTONIX40 MG PO (11:50)
[2022-07-30] MEDS ORDERED: VITAMIN C250 MG PO (11:52)
--- NOTE | 2022-07-30 11:55 | NUR ---
PT C/O 10/10 SHARP CHEST PAIN. BP 161/77, HEART RATE 93, O2 SAT 90% DR OLVERA NOTIFIED, GI COCKTAIL ORDERED.
--- NOTE | 2022-07-30 12:00 | NUR ---
MED REC COMPLETE
--- NOTE | 2022-07-30 12:04 | NUR ---
Texted MARCELO and the nurse has not completed reviewing the chart. He does not feel there will be an issue with pt admitting. Scheduled the van for transport as they only have 1 slot open at 1445. Orders were printed and Dr. Calero completed. All will be ready when they accept this pt.
--- NOTE | 2022-07-30 13:50 | NUR ---
Texted MARCELO and asked if he has an update. He states he does not. He will speak with the nurse.
[2022-07-30 14:09] VITALS: BP 113/75
--- NOTE | 2022-07-30 14:39 | NUR ---
Received a call from MARCELO and Cate RN. They have questions regarding pts labs and history. Concern as BNP is elevated at 1097 from yesterday. They will get charts from Dr. Munoz. Request draw of BNP. Dr. Calero in office and will order new labs stat.
--- NOTE | 2022-07-30 15:17 | NUR ---
PT. UPDATED ABOUT DC PLAN. GRANDSON IN THE ROOM. 2PA PIVOT WITH FWW TO BED. PT. BROUGHT ENSURE AND WATER. ON ROOM AIR AND SP02 IS 94%
--- NOTE | 2022-07-30 15:33 | NUR ---
Labs completed and faxed to MARCELO at [facility]. Texted I have faxed the updated labs.
[2022-07-30 18:03] VITALS: BP 124/69
--- NOTE | 2022-07-30 19:15 | NUR ---
BEDSIDE REPORT FROM MICHAEL CALLEJAS, PT HAS NO IV SITES, ANY RN SAID AWARE. PT WAS PREPARED TO D/C TODAY AND THEN THE PLANS WERE CANCELLED. PT IS ALERT AND IS DRINKING ENSURE, SHE IS PLEASANT AND REPORTS NO CURRENT NEEDS AT THIS TIME, SHE DID ASK THAT IF JW Puente RN IS WORKING TONIGHT THAT SHE WOULD LOVE HER TO STOP BY AND SAY ROSE.
[2022-07-30 21:15] VITALS: BP 135/79
--- NOTE | 2022-07-30 21:22 | NUR ---
PT ASSESSSMENT AND HS MEDICATIONS PROVIDED, PT HAS NO FURTHER CONCERNS OR REQUESTS, FRESH ICE WATER PROVIDED, APPLESAUCE WITH MEDS, ABDI CARE COMPLETE. PT REPORTS SHE IS COMFORTABLE AFTER SLIGHT REPOSITIONING
--- NOTE | 2022-07-30 21:34 | EKG ---
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
--- NOTE | 2022-07-30 21:50 | NUR ---
PT CALLED [facility] TO REPORT SHE HAD FINISHED HER WATER AND SHE FELT COLD, FRESH ICE WATER PROVIDED, WARM BLANKET PROVIDED. PT REPORTS SHE FEELS SLEEPY, AND IS PLANNING TO SLEEP NOW.
--- NOTE | 2022-07-31 00:06 | NUR ---
PT RESTING QUIETLY IN BED EYES CLOSED RR 18/MIN, NO DISTRESS NOTED AT THIS TIME
--- NOTE | 2022-07-31 01:00 | NUR ---
TALKED WITH AT [facility] IN REGARDS TO PT NOT HAVING IV ACCESS DUE TO D/C FOR PLANNED DISCHARGE YESTURDAY. ASKED IF SHE WOULD LIKE A NEW IV STARTED. SAID IF SHE IS TAKING IN PLENTY OF FLUIDS PO THAN IT IS OK TO LEAVE OUT FOR NOW.
--- NOTE | 2022-07-31 01:41 | NUR ---
PT SITTING UP IN BED, LEANING FORWARD EYES CLOSED NO DISTRESS NOTED.
--- NOTE | 2022-07-31 02:25 | NUR ---
PT ALERT TO RN IN ROOM AT BEDSIDE, PT REPOSITIONED FOR COMFORT. NO OTHER REQUESTS AT THIS TIME.
--- NOTE | 2022-07-31 04:13 | NUR ---
PT REPOSITIONED, WARM BLANKET PROVIDED, PT HAS NO FURTHER REQUESTS AT THIS TIME.
[2022-07-31 06:34] VITALS: BP 139/77
--- NOTE | 2022-07-31 08:00 | NUR ---
REPORT RECEIVED FROM NIGHT RN AND PT. CARE RESUMED. PT. IS ALERT AND ORIENTED TO ALL BUT DATE. SHE WAS ASSISTED WITH REPOSTIIONING BY [address] STAFF. HEEL PROTECTORS IN PLACE. MEDS ADMIN. AND ASSESSMENT COMPLETED. BROUGHT ENSURE AND BLANKET. CALL LIGHT IN REACH.
--- NOTE | 2022-07-31 08:20 | NUR ---
PATIENT REPOSITIONED IN BED W/ NURSE. WARM BLANKET GIVEN. PT BANTERED WITH STAFF WHILE DOING AM CARE. RIGHT LEG ELEVATED, CALL LIGHT WITHIN REACH.
[2022-07-31 09:17] VITALS: BP 127/70
--- NOTE | 2022-07-31 09:22 | NUR ---
PATIENT IN BED AFTER MEAL. VITALS AND I/O'S COMPLETED. ABDI DRAINED AND DOCUMENTED. PT HAS NO OTHER REQUESTS AT THIS TIME. CALL LIGHT WITHIN REACH.
[2022-07-31 13:55] VITALS: BP 138/73
--- NOTE | 2022-07-31 13:57 | NUR ---
PATIENT IN BED AFTER MEAL. PATIENT ATE FEW BITES OF LUNCH BUT PREFERRED AN ENSURE. VITALS AND I/O'S COMPLETED. ABDI DRAINED AND DOCUMENTED. CALL LIGHT WITHIN REACH.
--- NOTE | 2022-07-31 14:00 | NUR ---
SP02 IS 88% ON REST. PLACED ON 1L 02 NC. SPO2 INCREASED TO 92%. HEELS REPOSITIONS WITH PROTECTORS. ASSESSMENT COMPLETED. CALL LIGHT IN REACH.
--- NOTE | 2022-07-31 14:56 | NUR ---
UPDATED CHART NOTES, LABS AND PT NOTE FAXED TO MARCELO AT [facility].
--- NOTE | 2022-07-31 15:19 | NUR ---
PT. CONCERNED WITH HAVING BM. BOWEL TONES ACTIVE. MIRALAX ADMIN. LEGS REPOSITIONED. LEFT RESTING WITH CALL LIGHT IN REACH.
[2022-07-31 18:40] VITALS: BP 160/70
--- NOTE | 2022-07-31 19:25 | NUR ---
BEDSIDE REPORT RECEIVED FROM MICHAEL CALLEJAS, PT RESTING IN BED, ALERT AND PLEASANT, DENIES REQUESTS AT THIS TIME.
[2022-07-31 20:12] VITALS: BP 149/67
--- NOTE | 2022-07-31 20:12 | NUR ---
PT AWAKE AND ALERT,PLEASANT, VS, I/O AND ASSESSMENT DONE, PT HAD SMALL SMEAR OF LIGHT BROWN STOOL ON LINEN, LINEN CHANGED WITH CLOTH TESTER QUALITY AND RN, SUPPORT GIVEN TO RIGHT KNEE, PT DENIES NEED FOR PAIN MED AT THIS TIME, SIPPING ON ENSURE, HOB SLIGHTLY ELEVATED, OXYGEN IN PLACE AT 1L/NC.
[2022-07-31 22:45] VITALS: BP 177/76
--- NOTE | 2022-07-31 22:45 | NUR ---
PT RESTING WITH EYES CLOSED, RESTING, BP RECHECKED PRIOR TO MEDICATION, NOW 177/76, RT CATAPRESS GIVEN PER ORDER, PT MEDICATED WITH 1 NORCO FOR RIGHT KNEE PAIN PER ORDER, PT SIPPING ON ENSURE, ABDI IN PLACE AND DRAINING YELLOW URINE.
[2022-08-01 00:55] VITALS: BP 157/85
--- NOTE | 2022-08-01 00:55 | NUR ---
PT APPEARS TO SLEEP, RESP 16/MIN, OXYGEN REMAINS IN PLACE AT APPROX 1.5L/NC.
[2022-08-01 02:35] VITALS: BP 156/75
--- NOTE | 2022-08-01 02:35 | NUR ---
PT AWAKE, REPORTS FEELING GOWN AND LINEN DAMP FROM SWEATING, GOWN AND PILLOW CASE CHANGED, VS STABLE, AFEBRILE, PT DENIES NEED FOR PAIN MED, ABDI DRAINING WELL YELLOW URINE, PT RESTING, WITHOUT OTHER REQUESTS.
--- NOTE | 2022-08-01 04:45 | NUR ---
PT APPEARS TO SLEEP, RESP EVEN AND REG, WITHOUT DISTRESS.
--- NOTE | 2022-08-01 05:55 | NUR ---
PT AWAKEN FOR VS, PT ALERT, MEDICATED FOR RIGHT KNEE PAIN, I/O DONE.
--- NOTE | 2022-08-01 07:00 | NUR ---
PT ASLEEP, RESP EVEN AND REG
--- NOTE | 2022-08-01 09:48 | NUR ---
REPORT RECEIVED FROM NIGHT RN AND PT. CARE RESUMED. PT. IS ALERT AND ORIENTED BUT FORGETFUL AND REPEATS HERSELF AT TIMES. DENIES PAIN. ASSISTED WITH REPOSITIONING FOR BREAKFAST. ASSESSMENT COMPLETED. CALL LIGHT IN REACH.
[2022-08-01 09:55] VITALS: BP 117/62
--- NOTE | 2022-08-01 09:58 | NUR ---
PATIENT IN BED TALKING ON PHONE WITH FAMILY. VITALS AND I/O'S COMPLETED. ABDI DRAINED AND DOCUMENTED. FRESH COFFEE GIVEN. CALL LIGHT WITHIN REACH.
[2022-08-01 13:43] VITALS: BP 133/58
--- NOTE | 2022-08-01 14:00 | NUR ---
ABDI CATH REMOVED INTACT AND PT. TOLERATED WELL. SHE WAS PIVOTED BACK TO BED AND ATTENDS IN PLACE.
--- NOTE | 2022-08-01 17:44 | NUR ---
PT. HAS NOT VOIDED SINCE CATHETER REMOVED. BLADDER SCAN SHOWS 158ML URINE IN BLADDER. PT. AGREES TO GET ON BSC AFTER DINNER. WILL CONTINUE TO MONITOR.
[2022-08-01 18:05] VITALS: BP 158/75
--- NOTE | 2022-08-01 18:06 | NUR ---
UPDATED ABOUT LOW URINE OUTPUT. NO NEW ORDERS AT THIS TIME, WILL REVIEW CHART.
--- NOTE | 2022-08-01 19:00 | NUR ---
SHIFT REPORT RECEIVED FROM MICHAEL RN, PT RESTING QUIETLY, WITHOUT DISTRESS.
--- NOTE | 2022-08-01 19:30 | NUR ---
PT ALERT, VISITING ON PHONE WITH FAMILY MEMBER.
[2022-08-01 20:20] VITALS: BP 143/82
--- NOTE | 2022-08-01 20:20 | NUR ---
PT AWAKE AND ALERT,VS AND ASSESSMENT DONE, PT REQUESTING PAIN MED FOR RIGHT KNEE DISCOMFORT, MEDICATED WITH 1 NORCO PER ORDER, RT MEDS GIVEN, DISCUSSED NEED TO ATTEMPT TO VOID SOON.
--- NOTE | 2022-08-01 22:00 | NUR ---
PT ASSISTED UP TO BSC TO ATTEMPT TO VOID, PT PIVOTS ON LEFT LEG, SUPPORT GIVEN TO RIGHT KNEE, BRACE TO RIGHT KNEE INTACT, PT TOLERATED TRANSFER FAIR, UNABLE TO VOID BUT DID HAVE A SOFT BROWN BM MODERATE SIZE, ASSSITED BACK TO BED, PLAN TO BLADDER SCAN IN A FEW MINUTES.
--- NOTE | 2022-08-01 22:31 | NUR ---
Assisted Charge Nurse with bladder scan. Volume documented as 487 ml. Call light left in reach. No other needs expressed by Pt.
--- NOTE | 2022-08-01 22:44 | NUR ---
TC TO DR MONCADA, REPORT GIVEN ON PT'S INABILITY TO VOID SINCE ABDI REMOVED AND RESULTS OF BLADDER SCAN (487ML RESIDUAL) ORDERS RECEIVED TO REPLACE ABDI RECEIVED.
--- NOTE | 2022-08-01 22:44 | NUR ---
TC TO DR MONCADA, UPDATED ON PT'S INABILITY TO VOID AND EARILIER BLADDER SCAN OF 487, ORDERS RECEIVED TO REPLACE ABDI.
--- NOTE | 2022-08-01 23:20 | NUR ---
PT AWAKEN DISCUSSED NEED TO REPLACE ABDI, PT AGREES TO PLACEMENT, 16 F ABDI PLACED WITHOUT DIFFICULTY, DRAINING WELL YELLOW URINE, EMPTIED FOR 475ML, PT REPOSITIONED AND WITHOUT REQUESTS, PT ATTEMPTING TO REST.
--- NOTE | 2022-08-02 00:15 | NUR ---
PT APPEARS TO SLEEP, RESP EVEN AND REG.
--- NOTE | 2022-08-02 01:50 | NUR ---
PT APPEARS TO SLEEP, RESP EVEN AND REG
[2022-08-02 06:16] VITALS: BP 148/78
--- NOTE | 2022-08-02 06:16 | NUR ---
PT AWAKEN FOR VS, PT UNCOMFORTABLE IN RIGHT KNEE, MEDICATED FOR PAIN PER ORDER, NOTED OXY SAT 86 ON ROOM AIR, OXYGEN RESTARTED AT 2L/NC AND RISING TO 90-92%, I/O DONE, ASSESSMENT COMPLETED, PT RESTING WITH EYES CLOSED
--- NOTE | 2022-08-02 07:34 | NUR ---
PT SLEEPING SOUNDLY AT TIME OF SHIFT REPORT. AWAKE NOW DENIES NEED OF ANYTHING, AGREES SHE IS COMFORTABLE. REFUSES UP TO THE CHAIR STATING SHE WILL GET UP LATER. CALL LIGHT AND NEEDED ITEMS AT BEDSIDE.
[2022-08-02 08:01] VITALS: BP 173/84
--- NOTE | 2022-08-02 08:26 | NUR ---
PT SATS 95% ON 2L O2. O2 DC'D SATS REMAIN LOW 90'S CONSISTANTLY. LEFT ON RA AT THIS TIME
--- NOTE | 2022-08-02 08:58 | NUR ---
SPOT CHECKING O2 SAT ON RA PT 93% DENIES SOB OR OTHER DISCOMFORTS
--- NOTE | 2022-08-02 10:35 | NUR ---
PT UP TO BSC UNABLE TO MOVE BOWELS. TO THE RECLINER, PADDED WITH PILLOWS NEEDED ITEMS IN REACH
--- NOTE | 2022-08-02 12:54 | NUR ---
DR MONCADA IN TO SEE PT SHE AGREES SHE IS READY FOR DC. PLAN OF CARE GOING FORWARD DISCUSSED ALL QUESTIONS ANSWERED. PT DENIES FURTHER QUESTIONS OR CONCERNS. EATING LUNCH AT THIS TIME WAITING ON PAPERWORK
--- NOTE | 2022-08-02 13:50 | NUR ---
PT RESTING IN BED EYES CLOSED.
--- NOTE | 2022-08-02 14:08 | NUR ---
DR MONCADA IN TO SEE PT ANSWERS ALL QUESTIONS DISCUSSES PLANS GOING FORWARD. PT CONITNUES RESTING IN BED, ABDI IS CLAMPED, NO URGE TO VOID YET. PT DENIES DISCOMFORTS OR NEEDS OF
--- NOTE | 2022-08-02 17:38 | NUR ---
PT BLADDER SCANNED FOR 200 WHILE ABDI CLAMPED STATES SHE NEEDS TO VOID. ABDI DC'D PT UNABLE TO VOID BUT DOES PASS SOME STOOL. REPORTED TO DR MONCADA HE SAYS TO RESTART THE ABDI SHE WILL SEE UROLOGIST AFTER DC.
--- NOTE | 2022-08-02 18:36 | NUR ---
PT TOLERATES A GOOD AMOUNT OF EVENING MEAL DENIES ANY DISCOMFORTS OTHER THAN HER KNEE WHICH SHE HAS BEEN MEDICATED FOR. AGREES IT'S PAINFUL WITH MOVEMENT BUT SHE IS OTHERWISE COMFORTABLE. PT BACK TO HER BED ABDI CATH INSERTED DRAINING CLEAR YELLOW URINE. FRESH LIQUIDS TO BEDSIDE AND CALL LIGHT IN LAP. PT DENIES FURTHER NEEDS OF.
--- NOTE | 2022-08-02 19:10 | NUR ---
BEDSIDE REPORT RECEIVED PER CHRISTINA RN, PT RESTING IN BED WITH EYES CLOSED, RESP EVEN AND REG.
[2022-08-02 20:25] VITALS: BP 155/80
--- NOTE | 2022-08-02 20:25 | NUR ---
PT AWAKE, ALERT, VS, I/O AND ASSESSMENTS DONE, PT REPOSITIONED IN BED, DISCUSSED HER DAY, PT REPORTS SOME ABDOMINAL DISCOMFORT IN LEFT MID QUANDRANT, ABD SOFT, PT TENDER IN THIS AREA, PT REPORTS SHE ATE A HALF OF SANDWICH TODAY WHICH IS MORE THAN SHE HAS EATEN LATELY, PT REPORTED TO HAVE HAD A SMALL BM EARILIER TODAY, PLAN TO MONITOR, BARRIER CREAM TO BUTTOCK APPLIED FOR LIGHT REDDENED AREA, NO BREAKDOWN NOTED. SL INTACT TO LEFT FOREARM.
--- NOTE | 2022-08-02 21:10 | NUR ---
PT MOIST COUGH, PRODUCTIVE OF LIGHT SOLANO SPUTUM, SAMPLE TO LAB FOR SPUTUM CULTURE PER ORDER, PT MEDICATED FOR RIGHT LEG PAIN PER ORDER WITH ONE NORCO, PT WATCHING TV, SIDE RAILS UP X 4 AND BED IN LOW POSTION.
--- NOTE | 2022-08-02 22:15 | NUR ---
ORDERED ANTIBODIC STARTED PER ORDER, IV PATENT AND SITE INTACT, SPOT CHECK OXYGEN 95%, PT WITHOUT REQUESTS.
--- NOTE | 2022-08-02 23:20 | NUR ---
PT ASLEEP, RESP EVEN AND REG, HOB ELEVATED APPROX 40 DEREES, TILT TOWARDS RIGHT SIDE.
--- NOTE | 2022-08-03 00:10 | NUR ---
PT CONTINUES TO SLEEP, RESP EVEN AND REG,
--- NOTE | 2022-08-03 00:10 | NUR ---
SPOT CHECK O2 SAT DONE AND IT IS 95-96%, PT AWAKEN BRIEFLY THEN BACK TO SLEEP.
--- NOTE | 2022-08-03 01:30 | NUR ---
PT CONTINUES TO SLEEP, RESP EVEN AND REG, WITHOUT DISTRESS.
--- NOTE | 2022-08-03 03:35 | NUR ---
PT ASLEEP, RESP EVEN AND REG,
[2022-08-03 05:40] VITALS: BP 138/81
--- NOTE | 2022-08-03 07:51 | NUR ---
PT RESTING EYES CLOSED AT TIME OF SHIFT REPORT, LEFT UNDISTURBED. AWAKE NOW STATES "PRETTY GOOD" WHEN ASKED NOW HER KNEE FEELS. SAYS IT'S GOOD LONG SHE DOESN'T MOVE IT. RETURNS TO RESTING EYES CLOSED AFTER SHE DENIES ANY NEEDS AT THIS TIME.
--- NOTE | 2022-08-03 08:18 | NUR ---
UPDATED CHART FAXED TO MARCELO AT [facility] FOR PLACEMENT.
--- NOTE | 2022-08-03 08:37 | NUR ---
PT UP TO BSC ABLE TO PASS STOOL. ABDI DRAINING ADEQUATE AMOUNT OF CLEAR YELLOW URINE. TO THE CHAIR FOR MORNING MEAL.
--- NOTE | 2022-08-03 08:50 | NUR ---
PATIENT UP TO BSC, 2PA FWW. LINENS CHANGED. PATIENT HAD LARGE BM. SUE CARE, CATH CARE DONE. PATIENT BACK TO BED, 2PA FWW. RN NOW IN ROOM. CALL LIGHT IN REACH. NO FURTHER NEEDS AT THIS TIME.
--- NOTE | 2022-08-03 09:37 | NUR ---
PT RESTING IN BED DOES WELL WITH BREAKFAST DENIES NEED OF OTHER ITEMS.
[2022-08-03 10:16] VITALS: BP 133/66
--- NOTE | 2022-08-03 10:40 | NUR ---
Spoke with Ruthie. She states she is very tired today and does not want to work with OT. Discussed Dr. Mora does not feel she is ready for dc and will be here 1 to 2 more days. Pt cont. to plan for dc to [facility]. I spoke with MARCELO at [facility] earlier and updated this pt is not ready for dc.
--- NOTE | 2022-08-03 13:41 | NUR ---
PT VISITING ACTIVELY WITH HER GRANDSON, DENIES NEEDS AT THIS TIME
[2022-08-03 13:56] VITALS: BP 127/68
--- NOTE | 2022-08-03 14:35 | NUR ---
IV ZOSYN INFUSING FOR 4 HOURS. PATIENT ENDORSES A HEADACHE 08/29.
--- NOTE | 2022-08-03 14:52 | NUR ---
AFTER GETTING DONE WITH HER TWO O CLOCK VITALS. PATIENT ASKED FOR A COLD WASH CLOTH AND A CUP OF ICE.
--- NOTE | 2022-08-03 14:56 | NUR ---
PT HAS A "BIT OF A HEADACHE" SHE AGREES A COOL CLOTH TO HER FORHEAD HAS BEEN EFFECTIVE TO GIVE HER COMFORT. DENIES NEEDS OF ANYTHING AT THIS TIME
[2022-08-03 18:13] VITALS: BP 151/73
--- NOTE | 2022-08-03 18:26 | NUR ---
PT HAS A SMALL AMOUNT OF EVENING MEAL IS SETTING UP IN BED AT THIS TIME. ASSISTED TO BSC EARLIER HAD A LARGE SOFT BOWEL MOVEMENT. SUE CARE AND ABDI CARE PROVIDED PT RETURNS TO RESTING IN BED. GRANDSON IN TO VISIT PT IS UPBEAT AND TALKATIVE.
--- NOTE | 2022-08-03 19:13 | NUR ---
BEDSIDE REPORT RECEIVED FROM CHRISTINA RN, PT ALERT AND ORIENTED, WITHOUT REQUEST AT THIS TIME.
--- NOTE | 2022-08-03 19:55 | NUR ---
PT AWAKE AND ALERT, USING NEBULIZER, MEDICATED FOR PAIN PER REQUEST FOR RIGHT KNEE PAIN 10/29.
[2022-08-03 20:03] VITALS: BP 152/71
--- NOTE | 2022-08-03 20:21 | NUR ---
PT AWAKE AND ALERT, PT STATES SHE FEELS BETTER NOW THAT RIGHT LEG REPOSITIONED, LEG REMAINS ON PILLOW WITH KNEE BRACE IN PLACE, CMS TO LEG INTACT, ASSESSMENT AND VS DONE, IV PATENT CONTS AT 75ML/HR WITH LR, HEEL PADS IN PLACE, SIDE RAILS UP X 4, NOTED APPROX 15 ML IN ABDI, TUBING READJUSTED, PLAN TO MONITOR OVER THE NEXT HOUR AND CHECK U/O, ENCOURAGE INCREASED PO INTAKE, HOB ELEVATED APPROX 30 DEGRESS.
--- NOTE | 2022-08-03 20:30 | NUR ---
ASSESSMENT COMPLETED, PT REPOSITIONED, PT RESTING WITH EYES CLOSED.
--- NOTE | 2022-08-03 22:00 | NUR ---
PT RESTING QUIETLY, SCANT URINE NOTED IN ABDI, NO ADDITIONAL DRAINAGE WITH TUBE ADJUSTMENT, BLADDER SCAN DONE AND CONFIRMED WITH CHARGE NURSE JW CALLEJAS, RESIDUAL NOTED TO BE >551 ML, PERICARE TO CATH COMPLETED WITH BETADINE SWABS, ABDI BALLON DEFALTED AND ABDI ADVANCED TILL URINE NOTED IN TUBING, BALLOON REINFLATED, ABDI DRAINING WELL, 600ML YELLOW URINE EMPTIED FROM ABDI, PT STATES ABD DISCOMFORT GONE NOW, PLAN TO MONITOR, PT RESTING WITH EYES CLOSED, IV PATENT.
--- NOTE | 2022-08-04 00:20 | NUR ---
PT ASLEEP, RESP EVEN AND REG, IV PATENT, WITHOUT DISTRESS.
--- NOTE | 2022-08-04 03:00 | NUR ---
PT REPOSITIONED IN BED, BACK TO SLEEP, ABDI EMPTIED FOR 375ML YELLOW URINE. IV PATENT.
--- NOTE | 2022-08-04 04:25 | NUR ---
PT ASLEEP, RESP EVEN AND REGULAR.
[2022-08-04 05:40] VITALS: BP 143/58
--- NOTE | 2022-08-04 05:40 | NUR ---
LAB IN FOR AM BLOOD DRAW, PT DROWSY, VS DONE AND STABLE, ABDI WITH 75 ML OUTPUT, ATTEMPTS TO ADJUST ABDI TO SEE IF ADDITION URINE WILL DRAIN, SMALL AMOUNT DRAINED ONLY, PT BLADDER SCAN FOR 185ML, PT REPOSITIONED, PLAN TO MONITOR FLOW, SOME ABD TENDERNESS PER PALPATION, ABD SOFT, FLAT.
--- NOTE | 2022-08-04 06:00 | NUR ---
PT MEDICATED FOR RIGHT KNEE PAIN WITH 1 NORCO FOR PAIN 7/10, PT RESTING WITH EYES CLOSED AFTER MEDICATION GIVEN.
--- NOTE | 2022-08-04 07:13 | NUR ---
PT RESTING IN BED. PT REFUSED TO GET UP TO CHAIR. COFFEE PROVIDED TO PT. NO NEEDS. CALL LIGHT WITHIN REACH
--- NOTE | 2022-08-04 07:18 | NUR ---
REPORT RECEIVED FROM BRITTA JUNG. PT RESTING IN BED WITH EYES CLOSED. RESPIRATIONS EVEN AND UNLABORED. HEAD OF BED ELEVATED TO 30 DEGREES. SMALL AMOUNTS DRAINAING FROM ABDI CATHTER. NO ADDITIONAL NEEDS AT THIS TIME. CALL LIGHT WITHIN REACH. BED RAILS UP. PT ALLOWED TO REST UNDESTURBED.
--- NOTE | 2022-08-04 08:45 | NUR ---
Spoke with Ruthie. She states she is feeling much better today. She had a good nights sleep. UPdated I spoke with Pat and they will have an opening Wednesday if she is medically cleared by Dr. Mora. Progress notes faxed to MARCELO for update.
--- NOTE | 2022-08-04 08:53 | NUR ---
MORNING ASSESSMENT AND MEDICATION DUE. PT RESTING IN BED, SEMIFOWLER POSITION WITH HEAD OF BED AT 50 DEGREES. PT REPORTS 4/10 PAIN IN RIGHT LOWER LEG/KNEE. PT REPORTS PAIN IS WELL CONTROLLED AT THIS TIME AND DENIES NEED FOR ADDITIONAL PAIN MEDICATION. PT REPORTS "I HAD A GOOD NIGHTS SLEEP LAST NIGHT." PT OREINTED TO ALL. PT ENCOURAGED TO GET UP TO CHAIR. PT DECLINES AT THIS TIME. WILL CONTINUE TO ENCORAUGED AMBULATION/ACTIVITY. RIGHT KNEE BRACE IN PLACE. CMS WNL WITH STRONG TIBIAL AND PEDIAL PULSES AND SENSATION INTACT. LUNG SOUNDS CLEAR, DEMINISHED IN LOWER LOBES. SHALLOW RESPIRATIONS NOTED. PT REPORTS OCCATIONAL COUGH WITH SCAN SOLANO SPUTUM. OXYGEN SATUARTION 95% ON ROOM AIR. HEART TONES REGULAR. ABDOMEN SOFT AND NON TENDER ALTHOUGH BLADDER CAN BE FELT. BLADDER SCAN PERFOREMD AND 386 ML SEEN IN BLADDER. CATHER FLUSHED WITH 20ML NS, PULSITIAL FLUSH. 300ML RETRIEVED FROM ABDI CATHTER WITH 2 MUCOUS PLUGS SEEN. ADDITONAL 20ML FLUSH WITH ADDITIONAL 100ML RETRIEVED FROM CATHTER. SUE CARE DONE. CATHETER CARE DONE. DIETARY TO BEDSIDE TO REVIEW FOOD OPTIONS WITH PT. PT ORDERS SALMON AND YOGURT FOR LUNCH. ENSURE PROVIDED. NO ADDITIONAL REQUESTS OR COPMLAINTS. CALL LIGHT WITHIN REACH. BED RAILS UP.
--- NOTE | 2022-08-04 09:29 | NUR ---
THIS RN TO ROOM TO CHECK ON PT. PT CONTINUES TO DENY PAIN "UNLESS I PUSH ON IT." PT DENIES NAUSEA AND REPORTS HUNGER. PT REPORTS SHE IS PASSING GAS. PT ENCOAURGED TO GET UP TO AMBULATE, DECLINES AT THIS TIME. DR RIDLEY UPDATED ON PT STATUS AND ASSESSMENT. NO ADDITIONAL REQUESTS OR COMPLAINTS. CALL LIGHT WITHIN REACH. BED RAILS UP.
--- NOTE | 2022-08-04 09:46 | NUR ---
HOURLY ROUNDING: PT REPORTS "REALLY BAD PAIN IN MY RIGHT FOOT." LEG STRAIGHTENED. PT REQUESTS PRN PAIN MEDICATION. RATES PAIN AT 5/10. SEE MAR FOR MEDICATION GIVEN. NEW IV FLUID BAG HUNG. TRINIDAD HERNANDEZ DRAINING, WNL. NO ADDITIONAL REQUESTS OR COMPLAINTS. CALL LIGHT WITHIN REACH. BED RAILS UP.
--- NOTE | 2022-08-04 10:47 | NUR ---
in room to check on pt. pt stated she needed to have a bm. pt assisted to bsc 2 pa stand pivot. pt full linen change complete. pt assisted back to bed 2 pa as pt refused to get up to chair. pt r leg elevated. heel protectors on. pt sodas put in fridge. room cleaned up. no needs. call light within reach
--- NOTE | 2022-08-04 10:50 | NUR ---
HOURLY ROUNDING. PT REPORTS INCONTINANT STOOL IN BED. PT UP TO BEDSIDE COMODE WITH 2 PERSON ASSIST PIVOT, REMAINS NON WEIGHT BEARING ON RLE. PT ASSESTS VERY LITTLE. PT HAS ADDTIONAL SOFT BROWN BOWEL MOVEMENT. SUE CARE AND CATHETER CARE DONE. PT RECCOMENDED TO GET UP TO CHAIR. PT CONTINUES TO DECLINE. 2 PERSON ASSIST BACK TO BED. PT ABLE TO SCOOT HERSELF UP IN BED. PT REPORTS 4/10 PAIN IN RLE AND STATES PAIN MEDICAITON IS WORKING, PT DENIES NEED FOR ADDITIONAL PAIN MEDICAITON. NO ADDITIONAL REQUESTS OR COMPLAINTS. CALL LIGHT WITHIN REACH. BED RAILS UP.
--- NOTE | 2022-08-04 11:40 | NUR ---
THIS RN TO ROOM WITH OCCUPATIONAL THERAPY. PT HAS DECLINED THEREAPY ONCE THIS SHIFT, 2ND ATTEMPT. EDUCATION DONE. PT AGREES TO GET UP TO CHAIR WITH THERAPY FOR LUNCH. 2 PERSON ASSIST WITH FWW UP TO CHAIR. PT UNABLE TO TAKE HOPING STEPS OR MOVE MUCH WITH NON WEIGHT BEARING TO RIGHT LEG. PT ASSISTED TO PIVOT TO CHAIR. PT REPORTS PAIN IS WELL CONTROLLED, NOW 3/10 IN RIGHT LOWER LEG/KNEE. ABDI CATHETER AGAIN APPEARS TO NOT BE DRAINING. FLUSHED WITH 20ML NS AND URINE RETURN SEEN. NO ADDITIONAL REQUESTS OR COMPLAINTS. BLANKET PROVIDED. PT VISISTING WITH FRIENDS. CALL LIGHT WITHIN REACH.
--- NOTE | 2022-08-04 12:44 | NUR ---
HOURLY ROUDING: PT REMAINS UPTO CHAIR, EATING LUNCH. PT REPORTS PAIN TO RLE CONTINUES TO BE WELL CONTROLLED. WORK OF BREATHING WNL. PT REPORTS FEELING "HAPPY" AFTER VISITING WITH HER FREIND. ABDI CATHETER APPEARS TO BE DRAINING WNL. PT DENIES ADDITIONAL REQUESTS OR COMPLAINTS AT THIS TIME. CALL LIGHT WITHIN REACH.
[2022-08-04 13:27] VITALS: BP 138/59
--- NOTE | 2022-08-04 13:54 | NUR ---
AFTERNOON ASSESSMENT AND MEDICATION DUE. PT REMAINS UP TO CHAIR. PT REPORTS 5/10 PAIN IN RLE, SEE MAR FOR MEDICATION GIVEN. PT REPORTS SHE IS READY TO GET BACK TO BED. 2 PERSON ASSIST UP TO BEDSIDE COMODE. PT HAS MODERATE BROWN BOWEL MOVEMENT. SUE CARE DONE. CATHETER CARE DONE. 2 PERSON ASSIST BACK TO BED. PT ABLE TO BOOST SELF UP IN BED. HEAD OF BED ELEVATED TO 21 DEGREES PER PT PREFERENCE. BLADDER SCANNED, 0ML NOTED IN BLADDER. CATHER APPEARS TO BE DRAINING WNL, SEDIMENT NOTED IN TUBING WITH URINE. PT DENIES PAIN IN BLADDER AREA. PT ALERT AND OREINTE TO ALL. LUNG SOUNDS CLEAR AND MORE AIR FLOW NOTED IN LOWER LOBES THIS AFTERNOON. PT CONTINUES TO TOLERATE ROOM AIR. RLE REMAINS WNL, CMS INTACT, STRONG TIBIAL AND PEDIAL PULSES FELT. PT REPORTS SENSATION REMAINS WNL. BRACE IN PLACE TO R KNEE, BRUSING UNCHANGED. NO COUGH SEEN AT THIS TIME. PT TALKING WITH FAMILY ON THE PHONE. NO ADDITONAL REQUESTS OR COMPLAINTS. CALL LIGHT WITH IN REACH. BED RAILS UP.
--- NOTE | 2022-08-04 15:30 | NUR ---
IV ZOSYN INFUSING FOR [address] MONCADA IN TO SEE PATIENT.
--- NOTE | 2022-08-04 16:40 | NUR ---
THIS RN TO ROOM TO CHECK ON PT. PT RESTING IN BED, WATCHTING TV. NEW ORDERS FROM DR MONCADA. IV FLUIDS ADJUSTED. MEDICATION GIVEN. ABDI CATHETER NOT DRAINING YET AGAIN. PT REPORTS DISCOMFROT STATING HER BLADDER FEELS FULL. ABDI CATEHRE LINE FLUSHED WITH 30ML NS AND 250ML URINE REUTRN NOTED. PT REPORTS FEEING MUCH BETTER. PT REPORTS 4/10 PAIN IN RLE AT THIS TIME. PT DECLINES TIME UP TO CHAIR FOR DINNER. NO ADDITIONAL REQUESTS OR COMPLAINTS. CALL LIGHT WITHIN REACH. BED RAILS UP.
[2022-08-04 17:35] VITALS: BP 122/76
--- NOTE | 2022-08-04 17:37 | NUR ---
HOURLY ROUNDING: PT RESTING IN BED, REPORTS 4/10 PAIN BUT STATES "i'M GOING TO NEED THAT PAIN PILL WHEN IT'S DUE." PT REPORTS PAIN IS TOLERABLE AT THIS TIME. PT DECLINES TIME UP TO CHAIR FOR DINNER. YOGURT AND ENSURE PROVIDED, PT STATES HER GRANDSON IS DELIVERING HER A FAVORITE DINNER LATER. PT DENIES ADDITIONAL REQUESTS OR COMPLAINTS. CALL LIGHT WITHIN REACH. BED RAILS UP.
--- NOTE | 2022-08-04 17:53 | NUR ---
PTHERE FOR PNEUMONITIS, UTI AND METABOLIC ENCEPHLOPATHY. PT UP TO CHAIR X1 THIS SHIFT WITH PHYSICAL THERAPY AND 2 PERSON ASSIST WITH FWW. PT HAS DIFFICULTY PIVOTING TO CHAIR ON HER OWN, NEEDING SIGNIFICANT ASSISTANCE. PT ABLE TO ADJUST SELF IN BED AND BOOST SELF IN BED. PT TOLERAITNG REGULAR DIET WITH IMPROVED APPITITE. ENSURE PROVIDED AND DIETARY INVOLVED TO ACCOMIDATE PREFERENCES. LUGN SOUNDS CLEAR. OCCATIONAL COUGH CONTINUES. PT REPORTS 3-7/10 PAIN IN RLE THIS SHIFT. PRN PAIN MEDICATIONS GIVEN. ABDI CATHETER REMAINS IN PLACE WITH ONGOING DIFFICULTIES. CATHETER FREQUENTLY FLUSHED WITH NS, SEDIMENT REMOVED AND FREE FLOWING URINE OBTAINED. KNEE BRACE REMAINS IN PLACE, CMS WNL. PT ABLE TO SWALLOW PILLS WITH IDALIA SAUCE OR YOGURT. NO DYSPHAGIA SEEN THIS SHIFT, SPEACH THERAPY INVOLVED. PT USES CALL LIGHT AND MAKES NEEDS KOWN.
--- NOTE | 2022-08-04 18:10 | NUR ---
THIS RN TO ROOM TO CHECK ON PT. PTS PERI ARRIVED WITH HAMBURGER HELPER WHICH PT STATES "TASTES SO GOOD." PTS WILBERSON ENCOARUGED TO BRING IN ADDITONAL FOOD FOR PT WHICH CAN BE KEPT IN THE PT REFRIGERATOR. PT REPROTS 5-6/10 PAIN IN RLE AND REQUESTS PAIN MEDICATION. SEE MAR FOR MEDICATION GIVEN. PT DENIES ADDITIONAL REQUESTS OR COMPLAINTS. CALL LIGHT WITHIN REACH. BED RAILS UP.
--- NOTE | 2022-08-04 19:47 | NUR ---
ANTIBIOTIC COMPETED, NOW INFUSING ORDERED IV FLUIDS. PT STATES SHE FEELS BETTER. ABLE TO EAT MOST OF HER HAMBURGER HER GRANDSON BROUGHT IN. PT FEELS FOOD SERVED ISN'T "GOOD". NO NEEDS AT THIS TIME.
--- NOTE | 2022-08-04 19:57 | NUR ---
REPORT RECEIVED FROM DAY SHIFT RN. PT LYING IN BED ALERT AND ORIENTED. DENIES NEEDS. WHITE BOARD UPDATED. CALL LIGHT IN REACH.
[2022-08-04 21:34] VITALS: BP 164/67
--- NOTE | 2022-08-04 21:40 | NUR ---
ABDI CARE DONE. V/S COMPLETED. FRESH ICE WATER PROVIDED.
--- NOTE | 2022-08-04 22:44 | NUR ---
EVENING ASSESSMENT COMPLETE. SCHEDULED MEDS ADMIN PER EMAR. PRN FOR PAIN ADMIN FOR 6/10 RIGHT LEG PAIN. RLE ELEVATED ON PILLOW. CMS INTACT. IMMOBILIZER IN PLACE. LOW URINE OUTPUT NOTED. ABDI PULSATILE FLUSH WITH 40 ML STERILE SALINE. LARGE AMOUNT OF PURULENT LOOKING SEDIMENT NOTED. ABDI DRAINED 250 ML POST FLUSH. ASSISTED PT TO REPOSITION IN BED. WARM BLANKET PROVIDED. PT DENIES QUESTIONS OR CONCERNS. CALL LIGHT IN REACH.
--- NOTE | 2022-08-05 00:09 | NUR ---
PT RESTING IN BED WITH EYES CLOSED. RESPIRATIONS EVEN. CALL LIGHT IN REACH.
--- NOTE | 2022-08-05 00:58 | NUR ---
PT WAS RESTING WITH EYES CLOSED WHEN THIS RN WENT TO HANG HER ZOSYN.
[2022-08-05 05:59] VITALS: BP 163/68
--- NOTE | 2022-08-05 06:07 | NUR ---
MEDITECH DOWN TIME PROCEDURE-SEE PAPER CHART
--- NOTE | 2022-08-05 06:08 | NUR ---
PT RESTING WITH EYES CLOSED. AWAKENS EASILY. VS AND I&O OBTAINED. ABDI WITH 100 ML YELLOW URINE. FLUSHED WITH 20 ML STERILE SALINE. 530 ML URINE RETURNED WITH LARGE AMOUNT PURULENT LOOKING SEDIMENT. PT REPORTS RLE PAIN 08/29. PRN FOR PAIN ADMIN PER EMAR. PT REPOSITIONED IN BED. RLE ELEVATED ON PILLOW. NO FURTHER NEEDS. CALL LIGHT IN REACH.
--- NOTE | 2022-08-05 08:00 | NUR ---
REPORT RECIEVED FROM NIGHT RN AND PT CARE RESUMED. PT. IS ALERT AND ORIENTED TO ALL. SHE REPORTS PAIN HAS IMPROVED IN RLE AFTER PRN MED. ASSESSMENT COMPLETED. PT. ASSISTED WITH BREAKFAST AND MEDS ADMIN. CALL LIGHT IN REACH.
[2022-08-05 09:44] VITALS: BP 126/73
--- NOTE | 2022-08-05 09:45 | NUR ---
Spoke with Ruthie. She cont. to plan on dc to [facility]. Pt states she is tired today. She took a stool softner and had incontinence of stool. Did not sleep well.
--- NOTE | 2022-08-05 10:07 | NUR ---
PATIENT UP TO BSC WITH 2PA WITH FWW FOR SAFETY. PATIENT WAS INCONTINENT OF LOOSE STOOL. BEDBATH PROVIDED, STUDENT ASSISTING. NO WEIGHT ON RT LEG. ABDI AND SUE CARE PROVIDED. PATIENT BACK TO BED, LET ELEVATED WITH PILLOW. PILLOWS UNDER ARMS, HOB RAISED. PATIENT SATS IN 88-91% WITH ACTIVITY. RN NOTIFIED. CALL LIGHT IN EASY REACH. [place]Y ENSURE PROVIDED.
--- NOTE | 2022-08-05 10:25 | NUR ---
CALL LIGHT ANSWERED, PATIENT REQUESTING WARM BLANKET AND COMETHING FOR PAIN, RN NOTIFIED.
--- NOTE | 2022-08-05 10:45 | NUR ---
PT. C/O 08/29 RLE PAIN. ADMIN PRN MED. URINE SAMPLE OBTAINED FROM CATH, THEN CATH FLUSHED WITH 20ML STERILE SALINE. DISCUSSED WORKING WITH O.T. AND PT AGREEABLE. CALL LIGHT IN REACH.
--- NOTE | 2022-08-05 10:47 | NUR ---
Updated notes sent to [facility], hopeful pt will be able to dc on Wednesday.
[2022-08-05 14:27] VITALS: BP 116/61
--- NOTE | 2022-08-05 15:00 | NUR ---
AFTER PATIENT'S VITALS WERE DONE. BRUSHED PATIENT'S DENTURES. ALSO GOT HER SODA POP THAT SHE ASKED FOR. PATIENT WAS SITTING UP IN HER CHAIR.
[2022-08-05 17:43] VITALS: BP 138/54
--- NOTE | 2022-08-05 19:45 | NUR ---
PT IA AWAKE AND ALERT SITTING UP IN BED. HAS HER CALL LIGHT IN REACH. NOO NEEDS AT THIS TIME.
[2022-08-05 20:01] VITALS: BP 150/84
--- NOTE | 2022-08-06 00:33 | NUR ---
CALL LIGHT ANSWERED, pt REPORTS IV PUMP ALARMING, ISSUE RESOLVED. pt REPROTS PAIN IN RIGHT ANKLE/FOOT. NO DEFORMITY OR ABNORMALITY NOTED, HEEL PROTECTORS ALREADY IN PLACE. SOCK OFF OF pt AT THIS TIME. CMS INTACT PER pt. PRIMARY RN UPDATED AND AWARE. PRN PAIN MEDICATION AVAILABLE, WHEN THIS RN RETURNED TO ROOM TO OFFER PAIN MEDICATION pt WAS RESTING IN BED WITH EYES CLOSED, RR EVEN AND UNLABORED. pt LEFT ALONE TO PROMOTE REST, CALL LIGHT IN REACH.
--- NOTE | 2022-08-06 03:07 | NUR ---
IV ABX COMPLETED. IV FLUSHED AND SALINE LOCKED. PT REPOSITIONED.PILLOWS ADJUSTED. CALL LIGHT IN REACH.
[2022-08-06 06:07] VITALS: BP 167/81
--- NOTE | 2022-08-06 06:48 | NUR ---
PT CALLED TO USE THE BSC. SHE HAD A LARGE VERY SOFT BM.SHE WAS INCONTINENT BEFORRE GETTING HER TO THE COMMODE. SHE WAS CLEANED WITH WARMED BATH WIPES AND GOWN CHANGED. PT WAS MOVED TO HER CHAIR. THE FLOOR WAS CLEANED WITH CAMPOVERDE WIPES. PT'S BED WAS CHANGED . PT REQUESTED PAIN MEDICATION AFTER ALL OF THIS. SHE WAS MEDICATED WITH NORCO 5/325 FOR RIGHT KNEE PAIN SHE RATED 7/10. PT IS SITTING COMFORTABLY IN HER CHAIR WITH PILLOW SUPPORT.
[2022-08-06 08:31] VITALS: BP 170/82
--- NOTE | 2022-08-06 09:28 | NUR ---
pt call light answered, pt req to use bsc. pt assisted to bsc 2 pa stand pivot w fww. pt had bm. pt back to chair. no further needs. leg elvated. call light within reach
[2022-08-06 10:00] VITALS: BP 149/71
--- NOTE | 2022-08-06 10:00 | NUR ---
Spoke with Ruthie. Let her know, I am waiting to hear from [facility] if they will accept her tomorrow. She denies needs.
--- NOTE | 2022-08-06 14:10 | NUR ---
Received a call from MARCELO at [facility]. He states they are unable to take this pt as they are over their limit for pts at this time.
--- NOTE | 2022-08-06 15:36 | NUR ---
In and spoke with Ruthie. UPdated there are no beds available. Asked if she is willing to go out of town or is she would rather go back to [facility] and have HH for PT/OT. She states she would prefer to return to [facility]. I attempted to call David at [facility] and he is on his way to the hospital to visit Ruthie. I will follow up with him here.
--- NOTE | 2022-08-06 15:40 | NUR ---
Returned to room and spoke with David Khan, admin/direct of [facility]. We discussed with Ruthie needs. Pt does not want to go to a SNF out of town. Per David he visited as family are insisting pt go to [facility]. Pt cont. to insist she is the pt and her family, DO NOT MAKE HER DECISIONS. We discussed I don't believe [facility] will take her for two reasons. She has [place] as her secondary and she is non weight bearing. They will only take her if she is skillable. David and I went to [facility] and called Shanti from admissions. She confirmed the above, she is agreeable to take the pt, the family will have to pay out of pocket $360 dollars per day. Ruthie gave me permission to call her daughter, throughout the day she has preferred to update her daughter and requested I do not call her. Called daughter, Junie from my office with David present. UPdated daughter to what the cost would be for a SNF. Let her know this will be the same issue for [facility] and [facility]. [facility] agreed to take her as [facility] and [facility] are owned by [employer]. We discussed, [facility] Rn will evaulate Ruthie tomorrow to check if she is at baseline. Pt came to us from them with her tibia plateau fx, pneumonia, and UTI. Pneumonia and UTI are resolving. Pt will need to remain nonwt bearinf for 6-8 more wks. Pt was able to transfer as a SB assist with PT yesterday. We are approaching a time where pt is considered medically cleared. I also discussed with them, Ruthie has had a 3 night IP stay and is eligible to SNF placement for 30 days if she fails at [place]. Everyone was agreeable to this. Will wait for nurses assessment tomorrow at 10:15.
--- NOTE | 2022-08-06 15:59 | NUR ---
PT UP IN CHAIR. REPORTED, AT 1430, PAIN LEVEL IS A 3 OUT OF 10 AFTER HER PAIN MEDS. REQUESTED A PILLOW PLACED BEHIND HER BACK. IV ZOSYN HUNG AND STARTED AFTER LINE FLUSHED WITH 25ML OF NS, IV PATENT. FEATHER SEPARATOR IN ROOM MEETING WITH PT. CALL LIGHT IN REACH.
[2022-08-06 16:14] VITALS: BP 165/69
--- NOTE | 2022-08-06 19:00 | NUR ---
PT IS UP TO CHAIR AT 1715 HOURS, REFUSES TO TAKE SCHEDULED TUMS. REQUESTS A [place] SODA. AT 1800 HOURS, PT REQUESTS TO RETURN TO BED. ASSISTED PT, USING WALKER AND PIVOT WITH 1-PERSON ASSIST, BACK TO BED, RLE ELEVATED ON ONE PILLOW FOR COMFORT, PILLOW PLACED BEHIND PT'S BACK. SHE HAS HAD A PRODUCTIVE SOUNDING COUGH BUT NO SPUTUM. PT SHOULD BE GOING TO [place] TOMORROW. FAMILY HAS BEEN AT BEDSIDE THROUGHOUT THE DAY. PT HAS NOT BEEN EATING MOST OF THE DAY BUT HAS BEEN DRINKING ENSURE. PT REPORTS HER PAIN 3 OUT OF 10 UNLESS MOVING, THEN INCREASES TO 7. HER ABDI GETS CLOGGED WITH SEDIMENT AND HAS BEEN FLUSHED ONCE SINCE RECEIVING REPORT FROM MICHAEL EARLIER TODAY, WHICH PRODUCED 250ML OF CLOUDY YELLOW URINE WITH SEDIMENT. PT ATTEMPTED TO HAVE A BM IN THE COMMODE WITH NO RESULTS.
--- NOTE | 2022-08-06 19:51 | NUR ---
REPORT RECEIVED FORM DAY SHIFT RN. PT APPEARS TO BE RESTING WITH EYES CLOSED. CALL LIGHT IN REACH.
[2022-08-06 20:03] VITALS: BP 159/71
--- NOTE | 2022-08-07 01:32 | NUR ---
ADJUSTED PT IN BED FOR COMFORT. ABDI IS DRAINING YELLOW CLOUDY URINE. PERSONAL ITEMS AT BEDSIDE. CALL LIGHT IN REACH.
--- NOTE | 2022-08-07 02:51 | NUR ---
IV ABX COMPLETED. IV FLUSHED AND SALINE LOCKED. PT'S ABDI IS DRAINING CLOUDY YELLOW URINE. PT AWAKENED BRIEFLY. NO NEEDS. CALL LIGHT AND PERSONAL ITEMS IN REACH.
[2022-08-07 06:32] VITALS: BP 165/44
--- NOTE | 2022-08-07 06:54 | NUR ---
iv site to left forearm dc'd per request of primary rn jolene d/t pain at iv site, slight reddness also noted. catheter tip intact, dc wnl. student nurse jeanette in room with instructor of nursing to attempt to place new iv site. pump paused at this time.
--- NOTE | 2022-08-07 07:48 | NUR ---
In and spoke with Ruthie. She is now saying she feels she would go to [facility] in [place]. I will fax the chart to [facility] as she is already visiting us today to evaluate two other pts.
--- NOTE | 2022-08-07 08:19 | NUR ---
Called and spoke with daughter, Libertad. She is leaving town today. UPdated mom now in agreement to go to [facility] if they will accept her. Also discussed I made need to give the [facility] 12 letter as had documented she was dischargable today. I can assist her with the steps for a Medicare Appeal if pt would like to appeal her discharge. Daughter understands plan is to eithr return to [facility] (if nurse accepts her) or to a SNF if she is skillable. Daughter and grandson are out of town for a few days. Let daughter know, if [facility] accepts they transport their pts, if [facility] accepts, we will schedule a wc van.
--- NOTE | 2022-08-07 08:30 | NUR ---
REPORT RECEIVED FROM NIGHT RN AND PT. CARE RESUMED. PT IS ALERT AND ORIENTED TO ALL. SHE DENIES PAIN, BUT REQUESTS PAIN MED PRIOR TO WORKING WITH O.T. ASSESSMENT COMPLETED. PT. ASSISTED WITH BREAKFAST SET UP AND REPOSITIONING. CALL LIGHT IN REACH.
--- NOTE | 2022-08-07 10:13 | NUR ---
SPOKE TO PATIENT ABOUT HER DISCHARGE PLAN OF CARE.ANDRES FROM [facility] IN [place] WILL INTERVIEW PATIENT FOR POSSIBLE PLACEMENT. PATIENT IS HAPPY WITH HER CHOICE FOR THIS SNF.
[2022-08-07 10:20] VITALS: BP 114/59
--- NOTE | 2022-08-07 10:49 | NUR ---
Spoke with Irma wilson [facility]. She is here to see Ruthie. She would prefer to not take this pt. We discussed it is unclear if [facility] will take her ask skilled. She will visit with this pt to check if she is able to transfer.
--- NOTE | 2022-08-07 11:03 | NUR ---
RN FROM [facility] HERE TO EVALUATE PT. THIS NURSE ASSISTED PT. WITH FWW TO TRANSFER TO CHAIR UNDER OBSERVATION. CALL LIGHT IN REACH.
--- NOTE | 2022-08-07 11:05 | NUR ---
PT ALERT ORIENTED AND RESTING IN BED WITH TV ON. PT IS PLEASANT, MENTIONED THAT HER SUPERVISOR STAGE CARPENTRY HAD BEEN BY. PT THANKED ME FOR STOPPING, GAVE G.POST, PRAYER QUILT AND PT REQUESTED PRAYER. GAVE BLESSING AND WILL FOLLOW
--- NOTE | 2022-08-07 11:51 | NUR ---
MARIMAR HYATT CALLED AND REFUSED PATIENT TO RETURN TO FACILITY SINCE PATIENT IS A 2 PERSON ASSIST. MARIMAR HYATT WILL RECONSIDER WHE PATIENT WHEN SHE IS A ONE ONE PERSON ASSIST.
[2022-08-07 14:02] VITALS: BP 124/70
--- NOTE | 2022-08-07 14:24 | NUR ---
PT. C/O SOB. O2 SAT IS 96% ON RA AND RR IS 21. RT CALLED FOR BREATHING TX PER REQUEST. CATH FLUSHED WITH 50ML STERILE SALINE AND PATENT WITH CHUNKS OF SEDIMENT. WIRE PHOTO OPERATOR. CALL LIGHT IN REACH.
--- NOTE | 2022-08-07 15:26 | NUR ---
PATIENT WAS INTERVIEWED BY JACKELINE COLLAZO. PATIENT WAS EXCEPTED, BUT NOT UNTIL WEDNESDAY MORNING. AIR EXPORT OPERATIONS AGENT INSTRUCTED TO CALL [facility] WEDNESDAY TO FIGURE A TIME FOR THE TRANSER. PATIENT UPDATED WITH PLAN.
[2022-08-07 18:29] VITALS: BP 147/81
--- NOTE | 2022-08-07 18:43 | NUR ---
PT. ASSISTED BY 2 RNS AND FWW TO TRANSFER TO BED AND CHAIR. PT. SUDDENLY COULD NOT BEAR WEIGHT ASSISTED WITH PIVOTING TO BED. VITALS WNL AND SHE STATES SHE IS TIRED. CALL LIGHT IN REACH. WILL CONTINUE TO MONITOR.
--- NOTE | 2022-08-07 19:26 | NUR ---
ELTONE REPORT RECIEVED FROM DAY SHIFT RN. PT RESTING IN BED. NO DISTRESS NOTED. SAFETY PRECAUTIONS MAINTAINED. CALL LIGHT WITHIN REACH. WILL CONTINUE TO MONITOR.
[2022-08-07 20:09] VITALS: BP 120/70
--- NOTE | 2022-08-07 20:12 | NUR ---
PT RESTING IN BED, EYES CLOSED, EASY TO AROUSE. VS DONE AT THIS TIME. CALL LIGHT IN REACH. DENIES FURTHER NEEDS.
--- NOTE | 2022-08-07 21:11 | NUR ---
PT ASSESSED AND MEDICATIONS GIVEN. ABDI FLUSHED WITH 30ML OF STERIL WATER. LITTLE SEDIMENT NOTED BUT MOSTLY CLEAR URIN. PT TURNED ON RIGHT SIDE. SAFETY PRECAUTIONS MAINTAINED. CALL LIGHT WITHIN REACH. WILL CONTINUE TO MONITOR.
[2022-08-08 06:12] VITALS: BP 145/89
--- NOTE | 2022-08-08 06:26 | NUR ---
PT RESTED WELL DURING THE SHIFT. IV ABX GIVEN PER ORDER. PATIENT TURNED THROUGHOUT SHIFT. PT HAD A BM THIS AM. ABDI DRAINING WELL WITH MINIMAL FLUSHING. VSS. SAFETY PRECAUTIONS MAINTAINED. CALL LIGHT WITHIN REACH. WILL CONTINUE TO MONITOR.
[2022-08-08 10:10] VITALS: BP 142/82
--- NOTE | 2022-08-08 11:41 | NUR ---
PT USES CALL LIGHT APPROPRIATELY TO TOILET, REQUESTS TO USE A BED [facility]. PT STATES THE ICE PACK TO HER RIGHT KNEE HELPED "ALOT". PT IS PASSING GAS. CALL LIGHT IN REACH, ENCOURAGED HER TO CALL AFTER SHE IS FINISHED.
--- NOTE | 2022-08-08 12:49 | NUR ---
RECEIVED SHIFT REPORT FROM [facility] SHIFT RN AT ABOUT 0710 HOURS. PT AWAKE AND IN BED, HOB AND KNEES ELEVATED, RIGHT KNEE WITH PILLOW UNDERNEATH IT. PT'S IV PUMP CONTINUOUSLY ALARMS DISTAL OCCLUSION D/T PT'S SKIN FOLDING AROUND THE ENTRANCE SITE. CALL LIGHT IN REACH.
--- NOTE | 2022-08-08 12:54 | NUR ---
IV ABX RUNNING
--- NOTE | 2022-08-08 13:20 | NUR ---
PT IS RESTING DURING HOURLY ROUNDS, EYES CLOSED. REPORTS PAIN 4 OUT OF 10 IN RIGHT KNEE, ICE PACK ON RIGHT KNEE. CALL LIGHT IN REACH. NO FURTHER NEEDS AT THIS TIME.
[2022-08-08 13:52] VITALS: BP 151/80
--- NOTE | 2022-08-08 14:31 | NUR ---
PT RESTING IN BED, WATCHING TELEVISION. ENCOURAGED PT TO ALLOW US TO ASSIST HER TO THE CHAIR FOR THE REST OF THE DAY, UNTIL DINNER. PT REQUESTS TO STAY IN BED FOR NOW. IV LEVOFLOXACIN STARTED AFTER PLUM SET SWITCHED D/T ZOSYN INCOMPATIBILITY ON SECONDARY. CALL LIGHT IN REACH. PT DENIES FURTHER NEEDS AT THIS TIME.
--- NOTE | 2022-08-08 17:33 | NUR ---
PT SITTING UP IN BED, WATCHING TELEVISION. REQUESTS A CUP OF ICE. DECLINES CALCIUM CARBONATE (1700 MEDS). DENIES FURTHER NEEDS AT THIS TIME. CALL LIGHT IN REACH. WILL REFILL HER ICE.
--- NOTE | 2022-08-08 18:48 | NUR ---
PT DESIRES TO USE THE BED [facility] RATHER THAN GET OUT OF BED. I BELIEVE SHE IS ANXIOUS ABOUT INJURING HER RIGHT KNEE SHE STATED SHE HAD A LOT OF PAIN WITH MOVEMENT EARLY THIS MORNING BEFORE DAY SHIFT. ENCOURAGED PT TO GET OUT OF BED OFTEN SHE CAN TOMORROW. PT DID NOT HAVE A BM, BED [facility] REMOVED. ICE PACK PLACED TO RIGHT KNEE. CALL LIGHT IN REACH. NO FURTHER NEEDS AT THIS TIME.
[2022-08-08 18:53] VITALS: BP 140/71
--- NOTE | 2022-08-08 19:38 | NUR ---
REPORT RECEIVED FROM DAY SHIFT RN. PT LYING IN BED ALERT AND ORIENTED. ASSISTED TO REPOSITION IN BED. NO FURTHER NEEDS. WHITE BOARD UPDATED. CALL LIGHT IN REACH.
[2022-08-08 21:49] VITALS: BP 155/84
--- NOTE | 2022-08-08 22:32 | NUR ---
EVENING ASSESSMENT COMPLETE. SCHEDULED MEDS ADMIN PER EMAR. PT REPORTS RIGHT KNEE PAIN 08/29. PRN FOR PAIN ADMIN PER EMAR. RLE ELEVATED ON A PILLOW WITH BRACE IN PLACE. HEEL PROTECTORS BILAT. CMS INTACT. ABDI CATH IN PLACE. LITTLE URINE OUTPUT NOTED. FLUSHED WITH 20 ML STERILE NS AND MANIPULATED TUBING WITH 450 ML RETURN. SMALL AMOUNT SEDIMENT NOTED. PT REPORTS SOB. RT IN FOR BREATHING TX. ASSISTED PT TO REPOSITION IN BED. NO FURTHER NEEDS. CALL LIGHT IN REACH.
--- NOTE | 2022-08-09 01:27 | NUR ---
PT RESTING IN BED WITH EYES CLOSED. RESPIRATIONS EVEN. CALL LIGHT IN REACH.
--- NOTE | 2022-08-09 03:17 | NUR ---
PT RESTING IN BED WITH EYES CLOSED. HOB ELEVATED. RESPIRATIONS EVEN. CALL LIGHT IN REACH.
[2022-08-09 05:53] VITALS: BP 138/96
--- NOTE | 2022-08-09 06:30 | NUR ---
VS AND I&O OBTAINED. ABDI FLUSHED WITH 20 ML NS. 150 ML YELLOW URINE EMPTIED. ABDI EXTREMELY POSITIONAL. SMALL AMOUNT WHITE SEDIMENT NOTED. PRN FOR PAIN ADMIN FOR REPORTED 7/10 RIGHT KNEE PAIN. DEPENDENT EDEMA IN UPPER LIP NOTED THIS AM. PT DENIES DIFFICULTY SWALLOWING OR INCREASED SOB. ORAL CARE SUPPLIES PROVIDED. ASSISTED PT TO REPOSITION. DENIES FURTHER NEEDS. CALL LIGHT IN REACH.
--- NOTE | 2022-08-09 08:12 | NUR ---
SHIFT REPORT RECEIVED AT ABOUT 0705 HOURS THIS MORNING. PT AWAKE, ORIENTED, ALERT FOR ASSESSMENT. 0800 MEDS ADMINISTERED. PT DENIES NEEDS AT THIS TIME. NOTED SWELLING TO UPPER LIP, PT IS UNAWARE OF HAVING EATEN ANYTHING OR DONE ANYTHING DIFFERENT TO CAUSE SWELLING. PT SLEEPS IN AN UPRIGHT POSITION AND HEAD DROOPS, SWELLING POSSIBLY CAUSED FROM THIS? CALL LIGHT IN REACH.
[2022-08-09 09:20] VITALS: BP 155/77
--- NOTE | 2022-08-09 09:22 | NUR ---
PT BREAKFAST TRAY AT BEDSIDE, PT STATES SHE IS ON THE BEDPAN BUT WANTS TO TAKE HER 0900 MEDS NOW. MEDS GIVEN IN APPLESAUCE AT HER REQUEST. LOVENOX ADMINISTERED LLQ. PT WATCHING TELEVISION. FLUSHED ABDI WITH 20ML NS, AND RECEIVED GOOD RETURN WITH WHITE SEDIMENT. PT REPORTS LESS FULL FEELING AFTER FLUSHING. PT DENIES FURTHER NEEDS AT THIS TIME. BED [facility] REMOVED, PT HAD SMALL SEMI LIQUID BM, SUE AREA CLEANED. CALL LIGHT IN REACH.
--- NOTE | 2022-08-09 11:21 | NUR ---
PT USES CALL LIGHT TO ADVISE THAT SHE IS FEELING SOME PRESSURE IN HER BLADDER IF SHE IS RETAINING URINE. FLUSHED ABDI WITH 20ML NS AND RECEIVED GOOD RETURN OF THE 20ML BUT NOT MUCH MORE. FLUSHED AGAIN WITH 10ML NS AND RECEIVED 40ML RETURN. PT REPORTS THE PRESSURE FEELS LIKE IT HAS BEEN RELIEVED. PILLOWS PLACED UNDERNEATH PT'S BOTTOM WHILE IN THE CHAIR TO ASSIST GRAVITY WITH THE ABDI (SHE REFUSED TO ALLOW US TO STAND HER UP TO PLACE THE PILLOWS UNDERNEATH HER SO SHE USED THE ARMS OF THE CHAIR TO LIFT HERSELF MUCH POSSIBLE TO ALLOW US TO SLIDE A PILLOW UNDER EACH GLUTE). PT REPORTS THIS IS COMFORTABLE AND UNDERSTANDS TO USE THE CALL LIGHT IF SHE NEEDS TO ADJUST OR IF SHE FEELS BLOATED AGAIN, OR IF SHE HAS ANY FURTHER NEEDS. CALL LIGHT AND PERSONAL BELONGINGS WITHIN REACH.
[2022-08-09 14:30] VITALS: BP 138/72
--- NOTE | 2022-08-09 14:52 | NUR ---
PATIENT WITH ORAL TEMP OF 102.0. THIS NURSE HAD PATIENT USE INCENTIVE SPIROMETER, TEMP CAME DOWN TO 101.[address] HOLGUIN FOR UPDATE, PLAN TO SEND URINE SAMPLE TO LAB.
[2022-08-09 18:11] VITALS: BP 147/75
--- NOTE | 2022-08-09 18:51 | NUR ---
PT UP TO COMMODE WITH 2-PERSON HANDS-ON ASSIST WITH PIVOTING, MEDIUM SIZED SEMI LIQUID STOOL. PT SUE AREA CLEANED WITH WARMED BATH WIPES. PT TRANSFERRED TO BED. REFRESHED HER ICE, GAVE PT ICE PACK FOR RIGHT KNEE PAIN, SHE STATES SHE WANTS TO WAIT TO TAKE A PAIN PILL UNTIL AROUND 10PM. CALL LIGHT IN REACH, NO FURTHER NEEDS AT THIS TIME.
--- NOTE | 2022-08-09 19:38 | NUR ---
REPORT RECEIVED FROM DAY SHIFT RN. PT LYING IN BED ALERT AND ORIENTED. DENIES NEEDS. WHITE BOARD UPDATED. CALL LIGHT IN REACH.
[2022-08-09 22:06] VITALS: BP 178/80
--- NOTE | 2022-08-09 22:49 | NUR ---
EVENING ASSESSMENT COMPLETE. SCHEDULED MEDS ADMIN PER EMAR. PRN FOR 610 RIGHT KNEE PAIN ADMIN. RIGHT KNEE ELEVATED ON PILLOW. IMMOBILIZER IN PLACE. CMS INTACT. ABDI WITH LITTLE OUTPUT. FLUSHED WITH 20 ML STERILE SALINE WITH 150 ML RETURN. LARGE CHUNKS OF WHITE SEDIMENT NOTED. PT REPORTS SLIGHT SOB. RT IN ROOM FOR BREATHING TX. ASSISTED PT TO REPOSITION IN BED. PT DENIES QUESTIONS OR CONCERNS. CALL LIGHT INR EACH.
--- NOTE | 2022-08-10 00:27 | NUR ---
PT RESTING IN BED WITH EYES CLOSED. RESPIRATIONS EVEN. CALL LIGHT IN REACH.
--- NOTE | 2022-08-10 03:26 | NUR ---
PT RESTING IN BED WITH EYES CLOSED. RESPIRATIONS EVEN. CALL LIGHT IN REACH.
[2022-08-10 04:50] VITALS: BP 197/89
[2022-08-10 05:06] VITALS: BP 138/74
--- NOTE | 2022-08-10 05:15 | NUR ---
When Rebekah Agee RN entered the room patient reported Nausea and chest pressure. Rebekah Agee obtained vitals and BP noted to be elevated, this RN notified. Andria supervisor vat house was present on the floorand a rapid response was called @ 3036. Myself, Andria Welch and Rachel in room with patient. Code cart outside room. Flaquita CALLEJAS notified Dr. Pineda @ 7657. RT in to completed ekg. Lab don am labs and troponin. Imaging completed chest x-ray. Dr. Pineda to the floor @ 6645. Patients placed on 2L via NC. No new orders from at this time as he awaits lab results. Vitals repeated @ 0508. Event ended @ 0510 as patient reports resolution of chest pressure.
--- NOTE | 2022-08-10 05:30 | NUR ---
DR. HOLGUIN IN ROOM FOR RAPID RESPONSE. PT PLACED ON 2L/NC PER VERBAL ORDER. SpO2 HIGH 90'S. PT REPORTS SOB, NO WORSE THAN NORMAL. RESPIRATIONS SHALLOW. DURING EPISODE OF CHEST PRESSURE PT HAD SMALL AMOUNT BLOOD TINGED SPUTUM. PT REPORTS CHEST PRESSURE AND NAUSEA RESOLVING. PT REPORTS RIGHT KNEE/GENERALIZED PAIN 5/10. PRN FOR PAIN ADMIN PER EMAR. VS AND I&O OBTAINED. IV ABX INFUSING WNL. ASSISTED PT TO REPOSITION FOR COMFORT. NO FURTHER NEEDS AT THIS TIME. CALL LIGHT IN REACH.
--- NOTE | 2022-08-10 06:49 | NUR ---
PT IN BED DOZING ON AND OFF. NO C/O CHEST PRESSURE OR NAUSEA AT THIS TIME.
--- NOTE | 2022-08-10 07:00 | NUR ---
REPORT RECEIVED FROM BRITTA NORTH. PT SITTING UP INCHAIR BUT APPEARS TO BE SLEEPING.
--- NOTE | 2022-08-10 08:54 | NUR ---
PT SITTING UP IN CHAIR EATING BREAKFAST. TOOK PILLS WITH ENSURE. PT DENIES CONCERNS. CALL LIGHT IN [facility].
--- NOTE | 2022-08-10 10:22 | NUR ---
RECVD CALL FROM MARCELO AT [facility] THIS AM ASKING HOW THE PATIENT WAS PROGRESSING AND IF SHE WOULD STILL BE NEEDING PLACEMENT. ADVISED THAT PATIENT HAD PLANNED TO GO TO [facility] TODAY, BUT SINCE HAD A FEW ISSUES AND WOULD REMAIN HERE UNTIL TOMORROW. MARCELO STATES THAT THERE WOULD BE A BED AVAILABLE TOMORROW IF THE PATIENT WOULD LIKE TO STAY IN TOWN. DOWN TO SPEAK WITH THE PATIENT AND HER DAUGHTER ROBER ABOUT THE CHANGES IN [facility] DISCHARGE PLAN AND THE POSSIBILTY OF DISCHARGING TO [facility]. PATIENT STATES SHE WOULD RATHER DISCHARGE TO [facility] AT THIS TIME. ADVISED I WILL RETURN A CALL TO THE FACILITY AND START THE NEW DISCHARGE PLAN. ADVISED PATIENT AND DAUGHTER THAT I WILL UPDATE THEM WITH ANY DETAILS SOON POSSIBLE. DOMINIK CALLEJAS UPDATED.
--- NOTE | 2022-08-10 10:56 | NUR ---
PT ALERT, ORIENTED AND SITTING IN CHAIR FINISHING AM MEAL. PT HAS PLBLANKET ON LEGS, THANKED ME AGAIN. SHE SEEMS TO BE REALLY ENJOYING IT. PT REQUFESTED PRAYER, IS DEALING WITH ELEVATED WHITE COUNT AND SPIKED A FEVER. WILL FOLLOW.
--- NOTE | 2022-08-10 13:09 | NUR ---
PT CALLED TO GET BACK INTO BED AND USE THE BSC. HAD A SMALL SOFT BM. ASKED FOR PAIN MEDICATION.
[2022-08-10 13:11] VITALS: BP 156/76
--- NOTE | 2022-08-10 13:19 | NUR ---
PT CALLED FOR NEB TREATMENT. SPORTS PHOTOGRAPHER'S STATED SHE DID NOT HAVE MUCH URINE OUT OF HER ABDI. DID NOT APPEAR TO BE WORKING. FLUSHED LINE AND SEVERAL WHITE CHUNKS CAME OUT WITH URINE BEHIND IT. ADMINISTERED PAIN MEDICATION.
--- NOTE | 2022-08-10 14:37 | NUR ---
ADMINISTERED AB. COVERED WITH MORE BLANKETS AND TURNED UP HEAT IN THE ROOM.
--- NOTE | 2022-08-10 16:08 | EKG ---
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
--- NOTE | 2022-08-10 17:47 | NUR ---
PT IN BED, LOOKING MUCH PERKIER. DTR IN ROOM.
[2022-08-10 18:12] VITALS: BP 122/71
--- NOTE | 2022-08-10 19:45 | NUR ---
REPORT RECEIVED FROM DAY SHIFT RN. PT LYING IN BED ALERT AND ORIENTED. DENIES NEEDS. WHITE BOARD UPDATED. CALL LIGHT IN REACH.
[2022-08-10 21:19] VITALS: BP 139/74
--- NOTE | 2022-08-10 21:20 | NUR ---
ABDI CARE DONE. PATIENT BOOSTED UP IN BED AND REPOSITIONED. 2PA.
--- NOTE | 2022-08-10 21:39 | NUR ---
EVENING ASSESSMENT COMPLETE. SCHEDULED MEDS ADMIN PER EMAR. PRN ADMIN FOR 8 BACK/RIGHT KNEE PAIN. ASSISTED TO REPOSITION IN BED. RLE ELEVATED ON PILLOW. CMS INTACT. IMMOBILIZER IN PLACE. PT DENIES CHEST PAIN. IV ABX INFUSING PER ORDER. ABDI PATENT WITH YELLOW URINE. NO SEDIMENT NOTED AT THIS TIME. ABDI CARE DONE BY SUB MASTER. PT DENIES QUESTIONS OR CONCERNS. CALL LIGHT IN REACH.
--- NOTE | 2022-08-10 23:31 | NUR ---
PT RESTING IN BED WITH EYES CLOSED. RESPIRATIONS EVEN. CALL LIGHT IN REACH.
--- NOTE | 2022-08-11 02:16 | NUR ---
PT IN BED RESTING WITH EYES CLOSED. RESPIRATIONS EVEN. ABDI DRAINING CLEAR YELLOW URINE AT THIS TIME. CALL LIGHT IN REACH.
[2022-08-11 05:20] VITALS: BP 149/69
--- NOTE | 2022-08-11 05:32 | NUR ---
VS AND I&O OBTAINED. IV ABX INFUSING WNL. PRN FOR PAIN ADMIN FOR 8 RIGHT KNEE/BACK PAIN. RIGHT KNEE ELEVATED ON PILLOW. ASSISTED PT TO REPOSITION. ASSESSMENT COMPLETE. CALL LIGHT IN REACH.
--- NOTE | 2022-08-11 07:26 | NUR ---
REPORT FROM BRYAN NORTH.
--- NOTE | 2022-08-11 07:40 | NUR ---
MORNING ASSESSMENT IS COMPLETE. PATIENT UP TO COMMODE TO HAVE A LARGE BM, THEN UP TO THE CHAIR FOR BREAKFAST. PATIENT GIVEN WARM WASH CLOTH TO WASH FACE AND HANDS. COCCYX AREA IS NOT RED AT THIS TIME. PATIENT WAS ABLE TO MOVE SELF WELL WITH WALKER AND 2PA FOR STABILITY. PATIENT RATES BACK/KNEE PAIN 4/10 AFTER RECENT NORCO AND PREVIOUS 8/10 PAIN. NO OTHER NEEDS NOTED AT THIS TIME.
[2022-08-11 08:45] VITALS: BP 161/92
--- NOTE | 2022-08-11 09:29 | NUR ---
PATIENT UP TO COMMODE TO BM. MORNING MEDICATIONS GIVEN. MIRILAX AND LIZ HELD DUE TO MULTIPLE LOOSE BM'S THIS MORNING.
--- NOTE | 2022-08-11 09:45 | NUR ---
PATIENT WITH HR 114 AND FEELING LIGHT HEADED AFTER BM. MORNING MEDICATIONS GIVEN, COOL CLOTH TO FOREHEAD. PATIENT IS STARTING TO FEEL A LITTLE BETTER.
[2022-08-11] MEDS ORDERED: CEFPODOXIME PR200 MG PO (10:56)
--- NOTE | 2022-08-11 11:33 | NUR ---
PATIENT IS UP TO CHAIR, VISITING WITH FAMILY.
--- NOTE | 2022-08-11 12:15 | NUR ---
PATIENT UP TO COMMODE TO BM.
--- NOTE | 2022-08-11 12:20 | NUR ---
PATIENT UPDATED THAT THE PATIENT WILL BE TRANSPORTED TO [place] AT 1530 TODAY, PATIENT' DAUGHTER WAS IN THE ROOM.
--- NOTE | 2022-08-11 13:59 | NUR ---
PT SITTING IN CHAIR WITH KAREN IN [place]. DAUGHTER MANUEL HELPING PT GET READY TO DC TO [facility] LATER TODAY. BROUGHT NEW CLOTHES IN AND VISITING. GAVE ENCOURAGEMENT TO PT-SHE IS SPUNKY! HAD PRAYER WITH BOTH. WILL FOLLOW
--- NOTE | 2022-08-11 14:11 | NUR ---
IV ZOSYN INFUSING FOR 30MINUTES. DISCUSSED WITH PHARMACIST TO INFUSE FASTER BEFORE DISCHARGE.
--- NOTE | 2022-08-11 14:16 | NUR ---
PATIENT GIVEN ONE NORCO FOR 6/10 BACK/KNEE PAIN, AND PRIOR TO DISCHARGE.
[2022-08-11 14:45] VITALS: BP 144/78
--- NOTE | 2022-08-11 15:57 | NUR ---
REPORT CALLED TO BRITTA DAWKINS, AT [facility].
== END 2022-08-11 15:20 | DRG 871 ==
LOC: ED 21:09 → MS 07-30 01:26
PROVIDERS: ADMIT Internal Medicine; ATTEND Family Medicine
PROC: 0T9B70Z Drainage of Bladder with Drainage Device, Via Natural or Artificial Opening (ICD-10-PCS; principal; 2022-08-01)
DX: A41.9 Sepsis, unspecified organism (principal); E43 Unspecified severe protein-calorie malnutrition; J69.0 Pneumonitis due to inhalation of food and vomit; G93.41 Metabolic encephalopathy; J15.8 Pneumonia due to other specified bacteria; S82.142A Displaced bicondylar fracture of left tibia, initial encounter for closed fracture; S82.141A Displaced bicondylar fracture of right tibia, initial encounter for closed fracture; N39.0 Urinary tract infection, site not specified; Z20.822 Contact with and (suspected) exposure to COVID-19; D72.829 Elevated white blood cell count, unspecified; M62.50 Muscle wasting and atrophy, not elsewhere classified, unspecified site; R41.0 Disorientation, unspecified; E86.0 Dehydration; I10 Essential (primary) hypertension; K21.9 Gastro-esophageal reflux disease without esophagitis; R13.12 Dysphagia, oropharyngeal phase; E78.5 Hyperlipidemia, unspecified; R33.9 Retention of urine, unspecified; M19.90 Unspecified osteoarthritis, unspecified site; M81.0 Age-related osteoporosis without current pathological fracture; F32.9 Major depressive disorder, single episode, unspecified; F39 Unspecified mood [affective] disorder; F17.210 Nicotine dependence, cigarettes, uncomplicated; Z71.6 Tobacco abuse counseling; Z68.20 Body mass index [BMI] 20.0-20.9, adult; Z99.81 Dependence on supplemental oxygen; Z79.891 Long term (current) use of opiate analgesic; Z90.49 Acquired absence of other specified parts of digestive tract; Z90.710 Acquired absence of both cervix and uterus; Z88.2 Allergy status to sulfonamides; Z79.899 Other long term (current) drug therapy; Z98.890 Other specified postprocedural states; W01.198A Fall on same level from slipping, tripping and stumbling with subsequent striking against other object, initial encounter
CPT/HCPCS: 36415; 51702; 71045; 71260; 74177; 80048; 80053; 80061; 81001; 83605; 83880; 84484; 85025; 85379; 87040; 87070; 87077; 87088; 87205; 87502; 92526; 92610; 93005; 93010; 94640; 94760; 97110; 97162; 97165; 97530; 97535; 99285-25; C9803; J0692; J1650; J1956; J2543; J3480; J3490; J7060; J7121; Q9967; U0003

== ENCOUNTER 2022-12-29 13:09 | Emergency (ER) | payer MEDICARE, OTHER ==
[~2022-12-29] VITALS: Ht 152.4 cm; Wt 40.9 kg
[~2022-12-29 13:09] MED LIST changes: +ALENDRONATE SOD70 MG PO; +AMLODIPINE BESYL5 MG PO; +AMMONIUM LACTA385 GM TOP; +BENADRYL ITCH28.3 G1 TOP; +CEFPODOXIME PR200 MG PO; +CEPHALEXIN500 MG PO; +CLONIDINE HCL0.1 MG PO; +HYDROCODON-ACE1 EA10 PO; +MELATONIN3 MG PO; +MILK OF MA400 MG/5 M PO; +NEOSPORIN OIN28.3 GM TOP; +ONDANSETRON HCL4 MG PO; +PEG3350510 GM PO; +PROTONIX40 MG PO; +TUMS ULTRA400 MG PO; +VITAMIN C250 MG PO
--- OUTSIDE RECORDS SUMMARY | 2022-12-29 13:10 | XMS ---
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 ENatalie. VISIT COUNT (12 MO.) [address] [facility] TOTAL 3 NOTE: Visits indicate total known visits. ED/UCC VISIT TRACKING (12 MO.) 12/29/2022 13:09 [facility] TYPE: Emergency COMPLAINT: - POSS UTI 07/29/2022 21:10 [facility] TYPE: Emergency [...] - Nicotine dependence, unspecified, uncomplicated - Other manager long term care (current) drug therapy - Pain in right knee INPATIENT VISIT TRACKING (12 MO.) 07/30/2022 01:26 [facility] TYPE: Medical Surgical COMPLAINT: - PNEUMONITIS,UTI,METABOLIC ENCEPHALOPATHY DIAGNOSES: - Acquired absence of both cervix and uterus - Acquired absence of both cervix and uterus - Acquired absence of other specified parts of digestive tract - Acquired absence of other specified parts of digestive tract - Age-related osteoporosis without current pathological fracture - Age-related osteoporosis without current pathological fracture - Allergy status to sulfonamides - Allergy status to sulfonamides - Body mass index [BMI] 20.0-20.9, adult - Body mass index [BMI] 20.0-20.9, adult - Contact with and (suspected) exposure to COVID-19 - Contact with and (suspected) exposure to COVID-19 - Dehydration - Dehydration - Dependence on supplemental oxygen - Dependence on supplemental oxygen - Disorientation, unspecified - Disorientation, unspecified - Displaced bicondylar fracture of left tibia, initial encounter for closed fracture - Displaced bicondylar fracture of left tibia, initial encounter for closed fracture - Displaced bicondylar fracture of right tibia, initial encounter for closed fracture - Displaced bicondylar fracture of right tibia, initial encounter for closed fracture - Dysphagia, oropharyngeal phase - Dysphagia, oropharyngeal phase - Elevated white blood cell count, unspecified - Elevated white blood cell count, unspecified - Essential (primary) hypertension - Essential (primary) hypertension - Fall on same level from slipping, tripping and stumbling with subsequent striking against other object, initial encounter - Fall on same level from slipping, tripping and stumbling with subsequent striking against other object, initial encounter - Gastro-esophageal reflux disease without esophagitis - Gastro-esophageal reflux disease without esophagitis - Hyperlipidemia, unspecified - Hyperlipidemia, unspecified - bed bug exterminator (current) use of opiate analgesic - bed bug exterminator (current) use of opiate analgesic - Major depressive disorder, single episode, unspecified - Major depressive disorder, single episode, unspecified - Metabolic encephalopathy - Muscle wasting and atrophy, not elsewhere classified, unspecified site - Muscle wasting and atrophy, not elsewhere classified, unspecified site - Nicotine dependence, cigarettes, uncomplicated - Nicotine dependence, cigarettes, uncomplicated - Other correction (current) drug therapy - Other manager long term care (current) drug therapy - Other specified postprocedural states - Other specified postprocedural states - Pneumonia due to other specified bacteria - Pneumonia due to other specified bacteria - Pneumonitis due to inhalation of food and vomit - Pneumonitis due to inhalation of food and vomit - Retention of urine, unspecified - Retention of urine, unspecified - Sepsis, unspecified organism - Tobacco abuse counseling - Tobacco abuse counseling - Unspecified mood [affective] disorder - Unspecified mood [affective] disorder - Unspecified osteoarthritis, unspecified site - Unspecified osteoarthritis, unspecified site - Unspecified severe protein-calorie malnutrition - Unspecified severe protein-calorie malnutrition - Urinary tract infection, site not specified - Urinary tract infection, site not specified [email or web address]
[2022-12-29 13:35] LABS: HEMATOCRIT 35.5 % (35.0-50.0); HEMOGLOBIN 11.7 g/dL (12.0-18.0); MCH 28.5 (27-36); MCV 86.5 fl (81-99); PLATELET COUNT 328 K/uL (140-440); RDW 17.5 (10.5-15.0)
[2022-12-29 13:50] LABS: ALBUMIN 2.9 g/dL (3.4-5.0); ALBUMIN/GLOBULIN RATIO 0.73 (1.1-2.4); ANION GAP 12.4 (7-21); BUN/CREATININE RATIO 22.66 (6.0-28.6); CALCIUM 9.3 mg/dL (8.5-10.1); CREATININE, SERUM 0.75 mg/dL (0.55-1.02); POTASSIUM 3.4 mmol/L (3.5-5.1); PROTEIN, TOTAL 6.9 g/dL (6.4-8.2)
[2022-12-29 14:01] LABS: BANDS, MANUAL DIFF 4; BASOPHILS, MANUAL DIFF 1; EOSINOPHILS, MANUAL DIFF 0; LYMPHOCYTES, MANUAL DIFF 10; MONOCYTES, MANUAL DIFF 7; NEUTROPHILS, MANUAL DIFF 78
[2022-12-29 15:39] LABS: BILIRUBIN, URINE NEGATIVE (negative); BLOOD/HGB, URINE TRACE-I (Negative); KETONE, URINE NEGATIVE (Negative); LEUK ESTERASE, URINE TRACE (negative); NITRITE, URINE NEGATIVE (negative)
[2022-12-29 15:53] LABS: BACTERIA, URINE 1+ /hpf (negative); CASTS, URINE NONE SEEN \\lpf; COLLECTION TYPE, URINE CLEAN CATCH; CRYSTALS, URINE NONE SEEN (0-1+); EPITHELIAL CELLS, URINE SQUAMOUS 1+ /lpf (0-1+); REFLEX CULTURE, URINE Yes (No); WHITE BLOOD CELLS, URINE 21-40 /HPF (0-5)
[2022-12-29] MEDS ORDERED: CEFDINIR300 MG PO (17:19)
[2022-12-29 19:06] VITALS: BP 159/84
== END 2022-12-29 19:08 | disposition home or self-care (01) ==
LOC: ED 13:09
PROVIDERS: Emergency Medicine
DX: N39.0 Urinary tract infection, site not specified (principal); I10 Essential (primary) hypertension; J44.9 Chronic obstructive pulmonary disease, unspecified; F17.200 Nicotine dependence, unspecified, uncomplicated; Z88.8 Allergy status to other drugs, medicaments and biological substances; Z79.899 Other long term (current) drug therapy
CPT/HCPCS: 36415; 51702; 80053; 81001; 85025; 87088; 99283-25; J0696

== ENCOUNTER 2023-12-04 20:52 | Emergency (ER) | payer MEDICARE, OTHER ==
[~2023-12-04] VITALS: Ht 152.4 cm; Wt 47.7 kg
[~2023-12-04 20:52] MED LIST changes: +CEFDINIR300 MG PO
[2023-12-04] MEDS ORDERED: fentaNYL citrate 100 MCG/2 ML VIAL IV PRN (21:15)
[2023-12-04] MEDS ORDERED: TRAMADOL HCL50 MG PO (22:53)
[2023-12-04] MEDS ORDERED: TRAMADOL HCL 50 MG HOME.PACK PO ONE (23:00)
[2023-12-04 23:51] VITALS: BP 155/71
== END 2023-12-04 23:45 | disposition home or self-care (01) ==
LOC: ED 20:52
DX: M25.462 Effusion, left knee (principal); W20.8XXA Other cause of strike by thrown, projected or falling object, initial encounter; I10 Essential (primary) hypertension; J44.9 Chronic obstructive pulmonary disease, unspecified; E78.5 Hyperlipidemia, unspecified; F32.9 Major depressive disorder, single episode, unspecified; F17.200 Nicotine dependence, unspecified, uncomplicated; Z88.2 Allergy status to sulfonamides; Z88.1 Allergy status to other antibiotic agents; Z91.048 Other nonmedicinal substance allergy status; Z79.899 Other long term (current) drug therapy
CPT/HCPCS: 73560; 99283; A9270

== ENCOUNTER 2024-06-26 15:49 | Emergency (ER) | payer MEDICARE, OTHER ==
[~2024-06-26] VITALS: Ht 152.4 cm; Wt 51.2 kg
[2024-06-26] MEDS ORDERED: cloNIDine HCL 0.1 MG TAB PO ONE (16:45)
[2024-06-26] MEDS ORDERED: AMLODIPINE BESYLATE 5 MG TAB PO ONE (16:45)
[2024-06-26 18:30] VITALS: BP 196/92
[2024-06-26] MEDS ORDERED: NORVASC5 MG PO (18:30)
== END 2024-06-26 18:30 | disposition home or self-care (01) ==
LOC: ED 15:49
DX: I10 Essential (primary) hypertension (principal); E78.5 Hyperlipidemia, unspecified; J44.9 Chronic obstructive pulmonary disease, unspecified; F17.200 Nicotine dependence, unspecified, uncomplicated; Z79.899 Other long term (current) drug therapy; Z91.048 Other nonmedicinal substance allergy status; Z88.1 Allergy status to other antibiotic agents
CPT/HCPCS: 99283

== ENCOUNTER 2025-02-13 13:41 | Emergency (ER) | payer MEDICARE, OTHER ==
[~2025-02-13] VITALS: Ht 152.4 cm; Wt 50.4 kg
[~2025-02-13 13:41] MED LIST changes: +NORVASC5 MG PO
[2025-02-13] MEDS ORDERED: ASPIRIN 81 MG CHEW PO ONE (14:00)
[2025-02-13] MEDS ORDERED: NITROGLYCERIN 0.4 MG SUBL SL PRN (14:00)
[2025-02-13 14:04] LABS: BASOPHILS 0.4 % (0.1-1.2); EOSINOPHILS 3.0 % (0.7-5.8); LYMPHOCYTES 30.3 % (19.3-51.7); MCH 29.1 PG (25.6-32.2); MCHC 33.1 g/dL (32.2-35.5); MCV 88.1 fL (79.4-94.8); MONOCYTES 9.2 % (4.7-12.5); NEUTROPHILS 56.7 % (34.0-71.1); RBC 4.05 M/uL (3.93-5.22)
[2025-02-13] MEDS ORDERED: LISINOPRIL10 MG PO (14:04)
[2025-02-13] MEDS ORDERED: IPRAT-ALBUT 0.5-3 ML INH (14:06)
[2025-02-13 14:22] LABS: ALT (SGPT) 15.0 U/L (14-59); AST (SGOT) 22.0 U/L (15-37); GLOMERULAR FILTRATION RATE,EST 45.0 mL/min (>60); PROTEIN, TOTAL 6.6 g/dL (6.4-8.2); UREA NITROGEN 17.0 mg/dL (7-18)
[2025-02-13 17:47] VITALS: BP 178/110
--- NOTE | 2025-02-15 07:28 | EKG ---
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
== END 2025-02-13 17:47 | disposition short-term general hospital (02) ==
LOC: ED 13:41
PROVIDERS: Emergency Medicine
DX: I44.1 Atrioventricular block, second degree (principal); I10 Essential (primary) hypertension; E78.5 Hyperlipidemia, unspecified; J44.9 Chronic obstructive pulmonary disease, unspecified; F17.200 Nicotine dependence, unspecified, uncomplicated; Z79.899 Other long term (current) drug therapy; Z91.048 Other nonmedicinal substance allergy status; Z88.1 Allergy status to other antibiotic agents
CPT/HCPCS: 36415; 51702; 71045; 80053; 83735; 84484; 85025; 93005; 93010; 99285-25